=== PATIENT | male | born 1975 | race Caucasian/White ===

== ENCOUNTER 2016-06-28 07:52 | Emergency (ER) | payer BC, OTHER ==
[~2016-06-28] VITALS: Ht 188 cm; Wt 125.0 kg
[~2016-06-28 07:52] MED LIST: AMR2 PO
[2016-06-28 08:01] VITALS: TEMP 37.5; Ht 188 cm; Wt 125.0 kg
[2016-06-28] MEDS ORDERED: MoRPHine SULFATE 4 MG/ML 1 ML CARP\\VIAL IV STA (08:11)
[2016-06-28] MEDS ORDERED: ONDANSETRON INJ 2 MG/ML 2 ML VIAL IV STA (08:11)
[2016-06-28] MEDS ORDERED: METF-384 PO (08:51)
[2016-06-28] MEDS ORDERED: INSU1INJ33 INJ (08:51)
[2016-06-28] MEDS ORDERED: LISI-461 PO (08:51)
[2016-06-28 09:04] LABS: BASO % 0.2 %; BASO ABS # 0.01 K/uL (0-0.2); COMPLETE YES; HEMATOCRIT 42.1 % (42-52); IG% 0.2 %; LYMPH % 26.4 %; LYMPH ABS # 1.61 K/uL (1.2-3.4); MEAN CELL VOLUME 83.4 fL (80-100); MEAN CORPUSCULAR HEMOGLOBIN 29.7 pg (25-34); MEAN CORPUSCULAR HGB CONC 35.6 g/dl (32-36); MEAN PLATELET VOLUME 10.1 fL (7.4-10.4); MONO % 10.8 %; NEUT % 61.4 %; PLATELET COUNT 182 K/uL (130-400); RED BLOOD COUNT 5.05 M/uL (4.7-6.1); WHITE BLOOD COUNT 6.11 K/uL (4.8-10.8)
[2016-06-28 09:11] LABS: PARTIAL THROMBOPLASTIN RATIO 1.1; PROTHROMBIN TIME (PATIENT) 10.7 SECONDS (9.0-12.0)
--- NOTE | 2016-06-28 09:16 | DIAGNOSTIC IMAGING REPORT ---
RIGHT KNEE 3 VIEWS CLINICAL HISTORY: pain Right pain COMPARISON: None. DISCUSSION: The bones and joint spaces appear intact. There is no evidence of fracture, dislocation or bony disease. There is no evidence for soft tissue swelling. IMPRESSION: Negative study. Electronically signed by: Zac Barragan M.D. 06/28/2016 9:14 AM Dictated Date/Time: 06/28/2016 9:14 AM
[2016-06-28 09:20] LABS: ALT/SGPT 30 U/L (12-78); BLOOD UREA NITROGEN 15 mg/dl (7-18); BUN/CREATININE RATIO 27.6 (10-20); C-REACTIVE PROTEIN 1.26 mg/dl (0-0.29); CARBON DIOXIDE 24 mmol/L (21-32); CHLORIDE 103 mmol/L (98-107); CREATININE 0.54 mg/dl (0.60-1.40); GLUCOSE 119 mg/dl (70-99); SODIUM 137 mmol/L (136-145)
[2016-06-28 09:23] LABS: ALB/GLOB RATIO 0.9 (0.9-2); ALKALINE PHOSPHATASE 64 U/L (45-117); AST/SGOT 14 U/L (15-37)
--- NOTE | 2016-06-28 09:37 | DIAGNOSTIC IMAGING REPORT ---
Venous Doppler right leg RIGHT VENOUS DOPP LOWER EXT UNILAT CLINICAL HISTORY: pain/palpable cord Right pain. Edema. TECHNIQUE: Venous Doppler COMPARISON STUDY: None FINDINGS: Normal study IMPRESSION: Normal study Electronically signed by: Zac Barragan M.D. 06/28/2016 9:35 AM Dictated Date/Time: 06/28/2016 9:35 AM
[2016-06-28] MEDS ORDERED: CEFTRIAXONE SOD INJ 1 GM ADDVIAL IV STA (11:01)
[2016-06-28] MEDS ORDERED: HYDR-5688 PO (11:50)
[2016-06-28] MEDS ORDERED: CEPH500C PO (11:50)
--- NOTE | 2016-06-28 11:51 | EMERGENCY ROOM VISIT NOTE ---
History First contact with patient: 08:02 Chief Complaint: KNEEPAIN Stated Complaint: RIGHT KNEE-CAN'T PUT WEIGHT ON LEG History of Present Illness The patient is a 41 year old male who presents to the Emergency Department by private vehicle for evaluation of his RIGHT knee and leg pain. The patient reports that on Saturday he noticed pain to the knee and leg PROM awakening. He was not sure if he might obstruct his knee on a shelf prior to going to bed. He reports that he has had increasing pain with ambulation over the last few days. He woke today with intense pain which has limited his weightbearing capacity. The patient denies any redness or swelling to the area. He denies any fevers or chills. He denies any numbness or weakness to the distal extremity. He rates his current discomfort as a 10/10. He has tried nothing [id number] for symptoms. He denies any chest pain, palpitations, shortness of breath, nausea, or vomiting. He denies any known trauma to the area. He denies any recent tick bites or other exposures. He reports no history of injury or arthritis to the affected joint. The patient denies any family history of blood clots or bleeding disorders. Patient does have a history of diabetes. Review of Systems A complete 10-point Review of Systems was discussed with the patient, with pertinent positives and negatives listed in the History of Present Illness. All remaining Review of Systems questions can be considered negative unless otherwise specified. Social History Smoking Status: Never Smoker Smokeless Tobacco Use: No Drug Use: none Current/Historical Medications Scheduled Cephalexin Monohydrate (Keflex), 500 MG PO QID Insulin Degludec (Tresiba Flextouch), 40 UNITS INJ QPM Lisinopril (Lisinopril), 1 TAB PO QAM Metformin Hcl (Glucophage), Unknown Dose PO BID Scheduled PRN Hydrocodone/Acetaminophen 5MG/325MG (Scurry 5MG/325MG), 1-2 TABLET PO Q4H PRN for Pain Allergies Coded Allergies: No Known Allergies (Verified , 09/10/06) Physical Exam Vital Signs Date Time Temp Pulse Resp B/P Pulse Ox O2 Delivery O2 Flow Rate FiO2 06/28/16 12:02 90 16 111/65 97 06/28/16 10:35 92 16 133/73 97 Room Air 06/28/16 08:42 98 18 103/75 96 Room Air 06/28/16 08:01 37.5 111 18 134/90 97 Room Air Pain Rating (0-10): 10 Physical Exam VITAL SIGNS - Vital signs and nursing notes were reviewed. GENERAL - 41-year-old male appearing his stated age and in noticeable discomfort throughout the exam. MUSCULOSKELETAL - callus noted to the anterior surface of the RIGHT knee. Mild surrounding erythema. Moderately tender to palpation throughout the entire knee and pain with range of motion appreciated. Reducible tenderness to palpation to the posterior surface of the RIGHT calf. +5/5 strength appreciated bilaterally. NEUROLOGIC/VASCULAR - Neurovascularly intact distally with +3/5 dorsalis pedis pulses palpated bilaterally. Normal sensation to light and sharp touch appreciated distally. Medical Decision & Procedures ER Provider Diagnostic Interpretation: Radiological imaging and reports were reviewed by myself. Radiologist's Interpretation as follows: RIGHT KNEE 3 VIEWS CLINICAL HISTORY: pain Right pain COMPARISON: None. DISCUSSION: The bones and joint spaces appear intact. There is no evidence of fracture, dislocation or bony disease. There is no evidence for soft tissue swelling. IMPRESSION: Negative study. Venous Doppler right leg RIGHT VENOUS DOPP LOWER EXT UNILAT CLINICAL HISTORY: pain/palpable cord Right pain. Edema. TECHNIQUE: Venous Doppler COMPARISON STUDY: None FINDINGS: Normal study IMPRESSION: Normal study Laboratory Results 06/28/16 08:40 Red Blood Count 5.05, Mean Corpuscular Volume 83.4, Mean Corpuscular Hemoglobin 29.7, Mean Corpuscular Hemoglobin Concent 35.6, Mean Platelet Volume 10.1, Neutrophils (%) (Auto) 61.4, Lymphocytes (%) (Auto) 26.4, Monocytes (%) (Auto) 10.8, Eosinophils (%) (Auto) 1.0, Basophils (%) (Auto) 0.2, Neutrophils # (Auto ) 3.76, Lymphocytes # (Auto) 1.61, Monocytes # (Auto) 0.66, Eosinophils # (Auto ) 0.06, Basophils # (Auto) 0.01 06/28/16 08:40 Test 06/28/16 08:40 White Blood Count 6.11 K/uL (4.8-10.8) Red Blood Count 5.05 M/uL (4.7-6.1) Hemoglobin 15.0 g/dL (14.0-18.0) Hematocrit 42.1 % (42-52) Mean Corpuscular Volume 83.4 fL (80-100) Mean Corpuscular Hemoglobin 29.7 pg (25-34) Mean Corpuscular Hemoglobin Concent 35.6 g/dl (32-36) Platelet Count 182 K/uL (130-400) Mean Platelet Volume 10.1 fL (7.4-10.4) Neutrophils (%) (Auto) 61.4 % Lymphocytes (%) (Auto) 26.4 % Monocytes (%) (Auto) 10.8 % Eosinophils (%) (Auto) 1.0 % Basophils (%) (Auto) 0.2 % Neutrophils # (Auto) 3.76 K/uL (1.4-6.5) Lymphocytes # (Auto) 1.61 K/uL (1.2-3.4) Monocytes # (Auto) 0.66 K/uL (0.11-0.59) Eosinophils # (Auto) 0.06 K/uL (0-0.5) Basophils # (Auto) 0.01 K/uL (0-0.2) RDW Standard Deviation 37.9 fL (36.4-46.3) RDW Coefficient of Variation 12.6 % (11.5-14.5) Immature Granulocyte % (Auto) 0.2 % Immature Granulocyte # (Auto) 0.01 K/uL (0.00-0.02) Erythrocyte Sedimentation Rate 45 mm/hr (0-14) Prothrombin Time 10.7 SECONDS (9.0-12.0) Prothromb Time International Ratio 1.0 (0.9-1.1) Activated Partial Thromboplast Time 28.3 SECONDS (21.0-31.0) Partial Thromboplastin Ratio 1.1 Anion Gap 10.0 mmol/L (3-11) Est Creatinine Clear Calc Drug Dose 253.0 ml/min Estimated GFR () > 150.0 Estimated GFR (Non- 130.4 BUN/Creatinine Ratio 27.6 (10-20) Calcium Level 9.0 mg/dl (8.5-10.1) Magnesium Level 2.0 mg/dl (1.8-2.4) Total Bilirubin 0.6 mg/dl (0.2-1) Aspartate Amino Transf (AST/SGOT) 14 U/L (15-37) Alanine Aminotransferase (ALT/SGPT) 30 U/L (12-78) Alkaline Phosphatase 64 U/L (45-117) C-Reactive Protein 1.26 mg/dl (0-0.29) Total Protein 8.2 gm/dl (6.4-8.2) Albumin 3.8 gm/dl (3.4-5.0) Globulin 4.4 gm/dl (2.5-4.0) Albumin/Globulin Ratio 0.9 (0.9-2) Medications Administered Medications (Trade) Dose Ordered Sig/Monie Route Start Time Stop Time Status Last Admin Dose Admin Morphine Sulfate (MoRPHine SULFATE INJ) 4 mg NOW STAT IV 06/28/16 08:11 06/28/16 08:14 DC 06/28/16 08:41 4 MG Ondansetron HCl (Zofran Inj) 4 mg NOW STAT IV 06/28/16 08:11 06/28/16 08:14 DC 06/28/16 08:40 4 MG Ceftriaxone Sodium (Rocephin Inj) 1 gm NOW STAT IV 06/28/16 11:01 06/28/16 11:02 DC 06/28/16 11:13 1 GM ED Course Patient was seen and evaluated by myself. Labs were drawn, saline lock in place. Patient was treated with 4 mg morphine and 4 mg Zofran for pain. X-ray of the affected knee and ultrasound of the RIGHT lower extremity was obtained. Laboratory results demonstrate no acute leukocytosis, worrisome anemia, or bandemia. The patient does have mild elevation of his ESR and CRP. Imaging studies are otherwise unremarkable. Laboratory results and imaging studies were reviewed with the patient who acknowledges understanding. The patient was treated with 1 g of Rocephin intravenously. The patient was provided crutches for ambulation. He will follow-up with his primary care provider in the next 48 hours for recheck. He was educated on worrisome symptoms for return visit to the emergency department. Patient discharged home afebrile and in good condition. Medical Decision Given the patient's presentation and stated complaints, I did elect to perform the above-mentioned workup. The patient presents today with pain to the RIGHT knee and leg. He has no fever leukocytosis. He does have callus-like structures to the bilateral surface of the knee. There is no joint effusion. There is no DVT. There is no concerning exam findings for compartment syndrome. I questioned the patient has an early cellulitis to the anterior surface of the RIGHT knee. He was covered prophylactically with Rocephin. He was placed on Keflex as well. He was provided pain medication for home as well as crutches for ambulation. The patient will use [id number]-[id number] medications for ongoing symptoms as well. He'll follow-up with his primary care provider in 48 hours for recheck. He will return for changing/worsening symptoms. Patient discharged home afebrile and in good condition. In the evaluation and treatment of this patient, the following differential diagnoses were considered: Patellar Fracture, Tibial Plateau Fracture, Distal Femur Fracture, ACL Injury, PCL Injury, Collateral Ligament Injury, Pes Anserine Bursitis, Maisonneuve Fracture. Impression Primary Impression: Knee pain Additional Impression: Cellulitis Departure Information Dispostion Home / Self-Care Condition GOOD Prescriptions Hydrocodone/Acetaminophen 5MG/325MG (Scurry 5MG/325MG) Tab 1-2 TABLET PO Q4H Y for Pain, #18 TAB For Initial Treatment Prov: Behzad Araujo PA-C 06/28/16 Cephalexin Monohydrate (Keflex) 500 Mg Cap 500 MG PO QID for 10 Days, #40 CAP Prov: Behzad Araujo PA-C 06/28/16 Referrals Felix Esparza M.D. (PCP) Patient Instructions My [facility] Additional Instructions You have been seen in the emergency department today for your RIGHT knee and leg pain. You've been provided antibiotics to be used for a possible early infection. You were prescribed Keflex to be taken as prescribed. This is an antibiotic. All antibiotics have the potential to cause diarrhea. Stop this medication and contact a medical provider if you were to develop any significant adverse side effects including: wheezing, shortness of breath, passing out, vomiting, or a diffuse rash. Always take antibiotics as directed and COMPLETE the ENTIRE course regardless of the improvement of your symptoms. You have been prescribed Scurry to be used for pain control. This is a narcotic medication. You cannot drive or consume alcohol while on this medicine. This medicine should only be used for pain that cannot be controlled with over-the- counter pain medicines. For pain control, you can use the following vsed-cub-vnpytdo medicines (if >12 yo): - Regular strength (325mg/tab) Tylenol (acetaminophen) 2 tabs every 4-6 hours as needed. Do not exceed 12 tablets in a 24 hour period. Avoid taking more than 4 grams (4000 mg) of Tylenol per day. This includes any other sources of acetaminophen you may take on a regular basis. - Regular strength (200 mg/tab) Advil (ibuprofen) 1-2 tabs every 4-6 hours as needed. Do not exceed a dose of 3200 mg per day. Please use the crutches for ambulation for the next few days. Follow-up with your primary care provider in 48 hours for wound recheck from today's visit. Return for any changing or worsening symptoms. Problem Qualifiers Primary Impression: Knee pain Laterality: right Chronicity: acute Qualified Codes: M25.561 - Pain in right knee Additional Impression: Cellulitis Site of cellulitis: extremity Site of cellulitis of extremity: lower extremity Laterality: right Qualified Codes: L03.115 - Cellulitis of right lower limb
[2016-06-28 12:02] VITALS: BP 111/65; PULSE 90; O2SAT 97
[2016-10-11] MEDS ORDERED: MULT-506 PO (12:33)
[2016-10-11] MEDS ORDERED: GLC/500 PO (12:33)
[2016-10-11] MEDS ORDERED: ASPI81TA28 PO (12:33)
[2016-10-11] MEDS ORDERED: ATOR-22 PO (12:33)
[2016-10-11] MEDS ORDERED: LISI10TA PO (12:33)
== END 2016-06-28 12:04 | disposition home or self-care (01) ==
LOC: C.EDB 07:53
DX: L03.115 Cellulitis of right lower limb (principal); E11.9 Type 2 diabetes mellitus without complications; Z79.899 Other long term (current) drug therapy

== ENCOUNTER → 2016-07-04 | Outpatient (CLI) | payer BC ==
[~2016-07-04] MED LIST changes: -AMR2 PO; +ASPI81TA28 PO; +ATOR-22 PO; +CEPH500C PO; +GLC/500 PO; +HYDR-5688 PO; +INSU1INJ33 INJ; +LISI-461 PO; +LISI10TA PO; +METF-384 PO; +MULT-506 PO
[2016-07-04 13:44] LABS: RATIO 264.2 mcg/mg (0-30.0)
[2016-07-09 06:11] LABS: ALBUMIN 3.9 G/DL (3.8-4.8); ALBUMIN % 73.83 %; BETA GLOBULIN % 11.14 %; CREATININE UR 183 MG/DL (20-370); GAMMA GLOBULIN 1.2 G/DL (0.8-1.7); GAMMA GLOBULIN % 6.79 %; TOTAL PROTEIN 7.7 G/DL (6.2-8.3)
== END | disposition home or self-care (01) ==
LOC: C.LABBFT 09:41
PROVIDERS: ATTEND Internal Medicine
DX: E11.39 Type 2 diabetes mellitus with other diabetic ophthalmic complication (principal); R80.9 Proteinuria, unspecified

== ENCOUNTER → 2016-08-22 | Outpatient (CLI) | payer BC ==
[~2016-08-22] MED LIST changes: -CEPH500C PO
[2016-08-22 12:48] LABS: ESTIMATED AVERAGE GLUCOSE 154 mg/dl; HA1C FLAG Normal (Normal)
== END | disposition home or self-care (01) ==
LOC: C.LAB1850 10:05
PROVIDERS: ATTEND Nurse Practitioner Family
DX: E11.39 Type 2 diabetes mellitus with other diabetic ophthalmic complication (principal)

== ENCOUNTER → 2016-10-18 | Day surgery (SDC) | payer BC ==
[2016-10-11 12:35] VITALS: BMI 35.0
[~2016-10-18] VITALS: Ht 188 cm; Wt 122.7 kg
[~2016-10-18] MED LIST changes: +ATROPINE SULFATE 0.1 MG/ML 5ML SYR IV PRN; +EpHEDrine SULFATE INJ 50 MG/ML AMP IV PRN; -HYDR-5688 PO; +LIDOCAINE HCL 2% 2 ML VIAL (20MG/ML) ONE; -LISI-461 PO; -METF-384 PO; +PROPOFOL IV EMULSION 10 MG/ML 20 ML VIAL IV ONE
[2016-10-18 13:09] VITALS: Ht 188 cm; Wt 122.7 kg
--- NOTE | 2016-10-18 13:44 | Endo History and Physical ---
History & Physical Date of Service: October 18, 2016. Chief Complaint: mother had colon cancer Referring Physician: Dr. Esparza History of Present Illness 41 yo CM who presents for colonoscopy secondary to family history of colon cancer. Past Surgical History Hx Cardiac Surgery: No Hx Internal Defibrillator: No Hx Pacemaker: No Hx Abdominal Surgery: No Hx of Implantable Prosthesis: No Hx Post-Op Nausea and Vomiting: No Hx Cancer Surgery: No Hx Thoracic Surgery: No Hx Orthopedic: Yes (FINGERS CLOSED REDUCTION) Hx Urinary Tract Surgery: No Family History Colon CA Social History Smoking Status: Never Smoker Hx Substance Use: No Hx Alcohol Use: No Allergies Coded Allergies: No Known Allergies (Verified , 10/18/16) Current Medications Reported Home Medications Medications Dose Route/Sig Max Daily Dose Days Date Category Multivitamin (Multivitamins) Tab 1 Tab PO QAM 10/11/16 Reported Aspirin Ec (Aspirin) 81 Mg Tab 81 Mg PO QAM 10/11/16 Reported Glucophage (Metformin Hcl) 500 Mg Tab 2 Tabs PO BID 10/11/16 Reported Prinivil (Lisinopril) 10 Mg Tab 10 Mg PO QAM 10/11/16 Reported Lipitor (Atorvastatin Calcium) 20 Mg Tab 20 Mg PO HS 10/11/16 Reported Tresiba Flextouch (Insulin Degludec) 100 Unit/Ml Inj 40 Units INJ HS 06/28/16 Reported Vital Signs Weight (Kilograms): 122.73 Height (Feet): 6 Height (Inches): 2 Date Time Temp Pulse Resp B/P Pulse Ox O2 Delivery O2 Flow Rate FiO2 10/18/16 13:16 36.7 93 18 119/74 99 Room Air Physical Exam General Appearance: WD/WN, no apparent distress Respiratory/Chest: Auscultation: breath sounds normal Cardiovascular: Heart Auscultation: RRR Abdomen: Bowel Sounds: normal Inspection & Palpation: soft, non-distended, no tenderness, guarding & rebound Assessment and Plan Assessment: 41 yo CM who presents for colonoscopy secondary to family history of colon cancer. Plan: Proceed with colonoscopy.
--- NOTE | 2016-10-18 14:30 | GI REPORT ---
Procedure Date: 10/18/2016 2:06 PM Procedure: Colonoscopy Indications: Family history of colon cancer in a first-degree relative Medicines: Monitored Anesthesia Care Complications: No immediate complications. Estimated Blood Loss: Estimated blood loss: none. Procedure: Pre-Anesthesia Assessment: - Prior to the procedure, a History and Physical was performed, and patient medications and allergies were reviewed. The patient's tolerance of previous anesthesia was also reviewed. The risks and benefits of the procedure and the sedation options and risks were discussed with the patient. All questions were answered, and informed consent was obtained. Prior Anticoagulants: The patient has taken aspirin, last dose was 2 days prior to procedure. ASA Grade Assessment: II - A patient with mild systemic disease. After reviewing the risks and benefits, the patient was deemed in satisfactory condition to undergo the procedure. After I obtained informed consent, the scope was passed under direct vision. Throughout the procedure, the patient's blood pressure, pulse, and oxygen saturations were monitored continuously. The scope was introduced through the anus with the intention of advancing to the ileum. The scope was advanced to the ascending colon before the procedure was aborted. Medications were given. The colonoscopy was aborted due to inadequate bowel prep and poor endoscopic visualization. Lavage did not allow for the successful completion of the procedure. The colonoscopy was performed with moderate difficulty due to inadequate bowel prep. The patient tolerated the procedure well. The quality of the bowel preparation was inadequate. The rectum was photographed. Findings: Copious quantities of stool was found in the entire colon, precluding visualization. Lavage of the area was performed using a large amount of normal saline, resulting in incomplete clearance with continued poor visualization. Impression: - The procedure was aborted due to inadequate bowel prep and poor endoscopic visualization. - Stool in the entire examined colon. - No specimens collected. Recommendation: - Resume previous diet. - Continue present medications. - Repeat colonoscopy in 3 months because the bowel preparation was poor. - Return to primary care physician as previously scheduled. Rey Watters, DO 10/18/2016 2:30:01 PM This report has been signed electronically. Note Initiated On: 10/18/2016 2:06 PM I attest to the content of the Intraoperative Record and orders documented therein, exceptions below
--- NOTE | 2016-10-18 14:44 | Anesthesiology Progress Note ---
Anesthesia Post Op Note Date & Time October 18, 2016 at 14:44 Vital Signs Pain Intensity: 0 Vital Signs Past 12 Hours Date Time Temp Pulse Resp B/P Pulse Ox O2 Delivery O2 Flow Rate FiO2 10/18/16 14:24 85 18 95/54 98 Room Air 10/18/16 13:16 36.7 93 18 119/74 99 Room Air Notes Mental Status: alert / awake / arousable, participated in evaluation Pt Amnestic to Procedure: Yes Nausea / Vomiting: adequately controlled Pain: adequately controlled Airway Patency, RR, SpO2: stable & adequate BP & HR: stable & adequate Hydration State: stable & adequate Anesthetic Complications: no major complications apparent
--- NOTE | 2016-10-18 14:50 | Discharge Instructions ---
Endoscopy Patient Instructions Date / Procedure(s) Performed October 18, 2016. Colonoscopy Allergy Information Coded Allergies: No Known Allergies (Verified , 10/18/16) Discharge Date / Findings October 18, 2016. Poor Bowel Prep Medication Instructions OK to resume all medications today as prescribed Reported Home Medications Medications Dose Route/Sig Max Daily Dose Days Date Category Multivitamin (Multivitamins) Tab 1 Tab PO QAM 10/11/16 Reported Aspirin Ec (Aspirin) 81 Mg Tab 81 Mg PO QAM 10/11/16 Reported Glucophage (Metformin Hcl) 500 Mg Tab 2 Tabs PO BID 10/11/16 Reported Prinivil (Lisinopril) 10 Mg Tab 10 Mg PO QAM 10/11/16 Reported Lipitor (Atorvastatin Calcium) 20 Mg Tab 20 Mg PO HS 10/11/16 Reported Tresiba Flextouch (Insulin Degludec) 100 Unit/Ml Inj 40 Units INJ HS 06/28/16 Reported Provider Instructions Activity Restrictions - No exercising or heavy lifting for 24 hours. - Do not drink alcohol the day of the procedure. - Do not drive a car or operate machinery until the day after the procedure. - Do not make any important decisions or sign important papers in 24 hours after the procedure. Following Day: - Return to full activity which may include returning to work/school. Diet Start your diet with liquids and light foods (jello, soup, juice, toast). Then eat your usual diet if not nauseated. Treatment For Common After Affects For mild abdominal pain, bloating, or excessive gas: - Rest - Eat lightly - Lie on right side Follow-Up Information Follow-up with Dr. Esaprza as scheduled Anesthesia Information What You Should Know You have had a procedure that required some medicine to reduce anxiety and discomfort. This treatment is called moderate sedation. After receiving the treatment, you may be sleepy, but you will be able to breathe on your own. The effects of the treatment may last for several hours. Follow these instructions along with Activity/Diet recommendations noted above: * Do NOT do anything where dizziness or clumsiness would be dangerous. * Rest quietly at home today, then you can be up and about tomorrow. * Have a responsible person stay with you the rest of today. * You may have had an I.V. today. If so, you may take the dressing off later today. Recommendations Call your doctor if: * Trouble breathing * Continuous vomiting for more than 24 hours * Temperature above 101 degrees * Severe abdominal pain or bloating * Pain not relieved by pain medicine ordered * There is increased drainage or redness from any incision * A large amount of rectal bleeding greater than 2-3 tablespoons. (If you had a polyp/s removed or have hemorrhoids, a small amount of blood - from the rectum is to be expected.) * You have any unanswered questions or concerns. IN THE EVENT OF A SERIOUS EMERGENCY, GO TO THE NEAREST EMERGENCY ROOM Your discharge instructions were prepared by provider Rey Watters. Patient Instructions Signature Page Juventino Kevin Patient (or Guardian) Signature/Date: I have read and understand the instructions given to me by my caregivers. Caregiver/RN/Doctor Signature/Date: The above-named patient and/or guardian has received patient instructions on this date. + Original Patient Signature Page (only) stays with chart. Please make copy for patient.
[2016-10-18 14:54] VITALS: BP 101/66; PULSE 83; O2SAT 98
== END | disposition home or self-care (01) ==
LOC: C.GI 12:33
PROVIDERS: ATTEND Internal Medicine
DX: Z12.11 Encounter for screening for malignant neoplasm of colon (principal); Z80.0 Family history of malignant neoplasm of digestive organs; Z79.82 Long term (current) use of aspirin; Z79.899 Other long term (current) drug therapy

== ENCOUNTER → 2016-11-23 | Outpatient (CLI) | payer BC ==
[~2016-11-23] MED LIST changes: -ATROPINE SULFATE 0.1 MG/ML 5ML SYR IV PRN; -EpHEDrine SULFATE INJ 50 MG/ML AMP IV PRN; -LIDOCAINE HCL 2% 2 ML VIAL (20MG/ML) ONE; -PROPOFOL IV EMULSION 10 MG/ML 20 ML VIAL IV ONE
[2016-11-23 10:29] LABS: COMPLETE YES; EOS % 1.8 %; HEMATOCRIT 40.8 % (42-52); IG% 0.2 %; LYMPH % 47.1 %; LYMPH ABS # 2.06 K/uL (1.2-3.4); MEAN CELL VOLUME 85.7 fL (80-100); MEAN CORPUSCULAR HEMOGLOBIN 29.6 pg (25-34); MEAN CORPUSCULAR HGB CONC 34.6 g/dl (32-36); MONO % 12.4 %; NEUT % 38.5 %; PLATELET COUNT 160 K/uL (130-400); RED BLOOD COUNT 4.76 M/uL (4.7-6.1); WHITE BLOOD COUNT 4.37 K/uL (4.8-10.8)
[2016-11-23 10:39] LABS: URINE APPEARANCE CLEAR (CLEAR); URINE BILIRUBIN NEG (NEG); URINE COLOR YELLOW; URINE EPITHELIAL CELL AUTO 0-5 /lpf (0-5); URINE NITRITE NEG (NEG); URINE SPECIFIC GRAVITY 1.025 (1.000-1.030); UROBILINOGEN NEG (NEG); ZZUR CULT IF INDIC CLEAN CATCH NO
[2016-11-23 10:46] LABS: MANUAL MICROSCOPIC REQUIRED? NO; REVIEW REQ? NO
[2016-11-23 10:50] LABS: URINE PROTIEN/CREAT RATIO 0.2 (0-0.2); URINE TOTAL PROTEIN 15.7 mg/dl (0-11.9)
[2016-11-23 10:55] LABS: ALT/SGPT 50 U/L (12-78); BLOOD UREA NITROGEN 17 mg/dl (7-18); BUN/CREATININE RATIO 40.5 (10-20); CALCIUM 9.2 mg/dl (8.5-10.1); CARBON DIOXIDE 29 mmol/L (21-32); CHLORIDE 105 mmol/L (98-107); CHOLESTEROL 109 mg/dl (0-200); CREATININE 0.41 mg/dl (0.60-1.40); GLUCOSE 89 mg/dl (70-99); POTASSIUM 4.2 mmol/L (3.5-5.1); SODIUM 139 mmol/L (136-145); TRIGLYCERIDES 50 mg/dl (0-150); VERY LOW DENSITY LIPOPROT CALC 10 mg/dl
[2016-11-23 10:58] LABS: ALB/GLOB RATIO 1.1 (0.9-2); ALKALINE PHOSPHATASE 54 U/L (45-117); AST/SGOT 17 U/L (15-37); CHOLESTEROL/HDL RATIO 2.2; HDL CHOLESTEROL 49 mg/dl; LDL CHOLESTEROL CALCULATED 50 mg/dl
[2016-11-23 11:49] LABS: ESTIMATED AVERAGE GLUCOSE 137 mg/dl; HA1C FLAG Normal (Normal)
== END | disposition home or self-care (01) ==
LOC: C.LAB1850 08:57
PROVIDERS: ATTEND Internal Medicine
DX: E78.5 Hyperlipidemia, unspecified (principal); E11.39 Type 2 diabetes mellitus with other diabetic ophthalmic complication; R80.9 Proteinuria, unspecified; D72.819 Decreased white blood cell count, unspecified

== ENCOUNTER → 2017-06-07 | Outpatient (CLI) | payer BC ==
[2017-06-07 12:24] LABS: HEMOGLOBIN A1C 7.7 % (4.5-5.6)
[2017-06-07 12:25] LABS: BLOOD UREA NITROGEN 14 mg/dl (7-18); CALCIUM 9.3 mg/dl (8.5-10.1); CARBON DIOXIDE 30 mmol/L (21-32); CREATININE 0.63 mg/dl (0.60-1.40); GLUCOSE 162 mg/dl (70-99); SODIUM 135 mmol/L (136-145)
[2017-06-07 14:05] LABS: CREATININE RANDOM URINE 36.2 mg/dl
== END | disposition home or self-care (01) ==
LOC: C.LAB1850 10:01
PROVIDERS: ATTEND Nurse Practitioner Family
DX: E78.5 Hyperlipidemia, unspecified (principal); R80.9 Proteinuria, unspecified; E11.39 Type 2 diabetes mellitus with other diabetic ophthalmic complication

== ENCOUNTER 2020-07-08 03:20 | Inpatient (IN) ==
--- OUTSIDE RECORDS SUMMARY | 2020-07-08 03:23 | External Medical Summary | Continuity of Care Document ---
:1975 Author Name Floyd Zaragoza, Provider Address Unavailable Unavailable , Care Team Providers Name Role Phone Unavailable Unavailable Unavailable Todd ROTHMAN, Ileana Robertson Unavailable [email or web address] Koby VIRGEN Unavailable [email or web address] Edwardo ONTIVEROS M.D. 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) Patellar bursitis, right (726.60) (M70.51) Proteinuria (791.0) (R80.9) Diabetes mellitus type 2, uncontrolled (250.02) (E11.65) Type 2 diabetes mellitus, with long-term current use of insulin (250.00) (E11.9) Type 2 diabetes mellitus with complications (250.90) (E11.8) Obesity (278.00) (E66.9) Dyslipidemia (272.4) (E78.5) Hypertension (401.9) (I10) Diabetic nephropathy associated with type 2 diabetes m ellitus (250.40) (E11.21) Albuminuria (791.0) (R80.9) Diabetic peripheral neuropathy associate d with type 2 diabetes mellitus (250.60) (E11.42) Dysesthesia (782.0) (R20.8) Background diabetic retinopathy associat ed with type 2 diabetes mellitus (250.50) (E11.3299) Strain of trapezius muscle, left, initial encounter (840.8) (S46.812A) Knee pain (719.46) (M25.569) Allergies and Adverse Reactions No Known Drug Allergies (Allergy) Medications Mens Multi Vitamin & Mineral Oral Tablet; TAKE 1 TABLET SAMIRA Vázquez M.D. Start: 30-Nov-2016 Refills: 0 Aspirin 81 MG Oral Tablet Delayed Release; TAKE 1 TABLET BOWEN VANN M.D. Start: 30-Nov-2016 Refills: 0 Atorvastatin Calcium 20 MG Oral Tablet; TAKE ONE TABLE T BY MOUTH AT BEDTIME LORNA Brooks Start: 08-Jul-2017 Quantity: 30 Refills: 5 ReliOn Ultra Thin Plus Lancets; Test 3 times daily , MJerrica Start: 28-Oct-2017 Refills: 0 ReliOn Prime Test In Vitro Strip; TEST 3 TIMES DAILY. , Nik Start: 28-Oct-2017 Refills: 0 ReliOn Pen Roper 32G X 4 MM; Once daily with Huy medina Start: 28-Oct-2017 Refills: 0 metFORMIN HCl - 500 MG Oral Tablet; TAKE TWO TABLETS B Y MOUTH TWICE DAILY LORNA Brooks Start: 10-Jun-2017 Quantity: 120 Refills: 5 Soliqua 100-33 UNT-MCG/ML Subcutaneous S olution Pen-injector; INJECT 30 UNITS DAILY PROMISE Whalen Start: 07-Jun-2017 Quantity: 1 5 x 3 ML Pen Refills: 6 Procedures History of Tonsillectomy Status: Complet ed History of Oral Surgery Tooth Extraction Status: Completed Immunizations Tdap (Adacel) On: 12-Mar-2016 11:19 Lot #: [id number], SANOFI PASTEUR Pneumococcal polysaccharide vaccine, 23 valent On: 12-Feb-20 17 Fluzone Quadrivalent 0.5 ML Intramuscular Suspension On: Jan-2017 Pneumococcal polysaccharide vaccine, 23 valent Comments:08/22/2016-no Influenza Comments:08/22/2016-N O3 Family History cousin Family history of malignant neoplasm of breast (V16.3) (Z80. 3) Status: Active Mother Family history of Colon cancer (153.9) (C18.9) Status: Activ e Father Family history of diabetes mellitus (V18.0) (Z83.3) Status: Active Family history of myocardial infarction (V17.3) (Z82.49) Sta tus: Active Social History - Smoking Status Never smoked tobacco Plan of Treatment Planned Observations Planned Goals not documented Results No Known Results Results not documented
--- NOTE | 2020-07-08 05:05 | Emergency Department Note ---
Impression & Plan DKA (diabetic ketoacidoses), Diabetic foot ulcer, Acute hyponatremia, Hypertension ED Provider Note NAME: LANCE MCLAUGHLIN AGE: 45 SEX: M ARRIVES VIA: Walk-In INFORMANT: Patient ED PROVIDER(S): Monik Loving DO CHIEF COMPLAINT: Left lower extremity swelling and pain PLAN: Disposition: The patient is being admitted to the [facility] Condition: Guard condition MEDICAL DECISION MAKING: This is a 45-year-old who presents to the emergency department with left foot pain and lower extremity swelling. The patient is a known diabetic off of his medications. Laboratory studies reveal significant hyperglycemia with an elevated BHA and evidence of hyponatremia. Patient was found to be significantly hypertensive. He was treated with IV Lopressor and an insulin drip was started. Ultrasound showed no evidence of DVT but he did have some inguinal lymphadenopathy on the left which is most likely contributing to the left lower extremity edema. CT scan of the abdomen/pelvis showed no other significant intra-abdominal lymphadenopathy. The case was discussed with the [facility] and they will evaluate for further management. Triage Nursing notes reviewed and agree them. Vital Signs: reviewed and remarkable for tachycardia and hypertension Differential diagnosis: DVT, osteomyelitis, hypertensive crisis, DKA, diabetic hyperglycemia, dehydration, foreign body in the left foot, electrolyte abnormality ER treatment provided: Insulin drip IV Lopressor Diagnostics interpreted by me: Cardiac Monitoring: Sinus tachycardia at 112 Laboratory studies: As below Imaging studies: As per stat rad Ultrasound venous left lower extremity: Left inguinal lymphadenopathy with the largest measuring 4.7 x 1.9 x 2.7 cm. No evidence for left lower extremity DVT. Left foot x-ray: No evidence of foreign body; no evidence of osteomyelitis to the metatarsals. There is no evidence of fracture as per my interpretation. [facility], [id number] CT Scan Report Patient: LANCE MCLAUGHLIN Date: 07/08/20#: [id number]: [address] RDAcct ID:[id number]: Date: [address] Zip: [place] [address]Fgw: 45Location: EDSex: MRoom/Bed:Att Phy:Diagnosis: FOOT WOUND,SWOLLEN ANKLE,NO MORPHINEPri Phy: Felix Esparza, MDStogus va medical centerice Date: 07/08/20Fa Phy:Interpreting Phy: Parish Lianne Viryaubree MDAit Phy: Ordering Phy: Monik Loving D.O. ABDOMEN AND PELVIS CT WITH IV CONTRAST CT DOSE: 1170.67 mGycm HISTORY: eval abdominal lymphadenopathy TECHNIQUE: Multiaxial CT images of the abdomen and pelvis were performed following the use of intravenous contrast. A dose lowering technique was utilized adhering to the principles of ALARA. COMPARISON STUDY: None. FINDINGS: The lung bases are clear. No pneumoperitoneum. No pneumatosis. No suspicious lytic are blastic osseous lesions. The liver, gallbladder, spleen, adrenal glands, pancreas, and kidneys are unremarkable. No hydronephrosis. There are few prominent periportal lymph nodes. However, these remain subcentimeter in short axis diameter and therefore do not meet CT criteria for pathologic involvement. Dominant portacaval lymph node measures 2.2 x 0.9 cm. Otherwise, no retroperitoneal lymphadenopathy. Subcentimeter pelvic sidewall lymph nodes are also within the range normal limits. The bladder is decompressed and not well evaluated. The prostate gland is normal in size. A few colonic diverticula. No evidence for acute diverticulitis. No bowel wall thickening or obstruction. Normal appendix. IMPRESSION: 1. A few prominent periportal lymph nodes which are at the upper limits of normal for size. Otherwise, no lymphadenopathy identified in the abdomen or pelvis. 2. No bowel wall thickening or obstruction. 3. Normal appendix. 4. No hydronephrosis. HPI: 45/M arrives for evaluation of left foot pain. The patient developed blister in April on the plantar surface of his left foot. Over the past 1 week, he has noted that that blister has opened up and that the foot has begun to throb. He has also noticed increased swelling in the left foot and left calf now he has significant pain up into the calf. The patient has a known history of diabetes. He stopped taking all of his medication approximately 2 years ago after he stopped seeing Dr. Taylor. He has only seen his PCP-Dr. Esparza once in the past 2 years. ROS: See above HPI for pertinent positives & negatives. A total of 10 systems reviewed and were otherwise negative. PAST MEDICAL HISTORY:See Below PAST SURGICAL HISTORY:See Below FAMILY HISTORY:See Below SOCIAL HISTORY:See Below HOME MEDICATIONS:See list ALLERGIES:None VITALS:See Below PHYSICAL EXAMINATION: HEENT: Head - normocephalic and atraumatic. Pupils are equal, round, and reactive to light. Extraocular eye muscles are intact, and sclera are anicteric. Nose - moist nasal mucosa without discharge. Mouth - moist buccal mucosa. Oropharynx is nonerythematous and there is no tonsillar exudate or edema noted. Neck: Supple; no cervical lymphadenopathy Heart: Regular rate and rhythm. There is a normal S1 and S2 with no murmurs, clicks, or gallops appreciated. Lungs: Clear to auscultation bilaterally with no wheezes, rales, or rhonchi. Abdomen: Soft, protuberant, completely nontender, nondistended, with good bowel sounds. There are no palpable pulsatile masses or hepatosplenomegaly. There is no guarding, rigidity, or rebound noted. Extremities: The left lower extremity appears larger or more edematous than the right, most specifically in the foot and calf area. There is significant fungus about the feet. There is an open wound about the plantar surface of the fifth metatarsal measuring the size of a quarter with subcutaneous fat exposed. There is no obvious foreign body noted. There is no surrounding erythema or cellulitic changes appreciated. There are easily palpable distal pulses. The patient's left calf and popliteal fossa is quite painful to palpation Skin: warm and dry with good turgor and no rashes. ED COURSE: Times/Reassessments: 0405. The patient was evaluated in room A4. A complete history and physical was performed. An order was placed for continuous cardiac monitoring. The patient was in a sinus tachycardia at 112. An IV lock was initiated and labs were drawn as above. A twelve-lead EKG was obtained as described above. The patient went for plain films of the left foot to rule out osteomyelitis or foreign body near that ulcer. He will then have an ultrasound of the left lower extremity to rule out DVT. 0545: I reviewed the results of the x-ray and ultrasound and explained that he has inguinal lymphadenopathy will need to go for CT scan of the abdomen. The patient is also noted to be significantly hyperglycemic and IV fluids and an insulin drip will be started. Patient was bolused with IV normal saline solution 0715: Patient is resting comfortably at this time. However, the patient was noted to be significantly hypertensive and was given 5 mg of IV Lopressor. I kept him abreast of the situation. He will be admitted to the hospital. We are awaiting CT results and then I will talk to the [facility] hospitalist. 0815: I relayed to him the results of the CAT scan and will discuss the case with from [facility] hospitalist group. An ABG was ordered. The patient remained hemodynamically stable. I have personally spent greater than 65 minutes of critical care time in the direct management of this patient. This includes bedside care, interpretation of diagnostic studies, and testing, discussion with consultants, patient, and family members, and other required patient management activities. This 65 keira juan is in excess of all separately billable procedures. Monik Loving, Past Med/Surg History Medical History Diabetes Hypertension Surgical History H/O colonoscopy Family History Other Diabetes Social History Smoking Status: Never smoker Hx Alcohol Use: No Hx Substance Use: No Net Sql Developer Required: No Beliefs That Will Affect Care: Baptism Current Living Situation: Parent Other Information That Helps Us Care for You: No Feels Safe at Home: Yes Safety Concerns: Feels Safe At This Time Assistive Devices: Glasses Allergies Allergies Allergy/AdvReac Type Severity Reaction Status Date / Time morphine AdvReac Intermediate PER PT Verified 07/08/20 07:50 "CONFUSION, LOOPY, OUT OF MY MIND". Home Meds Home Medications Medication Instructions Recorded Confirmed acetaminophen [Tylenol Extra 1,000 mg PO Q6H PRN 07/08/20 07/08/20 Strength] Results & Data (ED) Vital Signs Vital Signs - 24 hr 07/08/20 03:30 07/08/20 05:30 07/08/20 06:07 Temperature 36.5 C Temperature Source Temporal Artery Scan Pulse Rate 112 H 99 H Pulse Rate [Finger] 102 H Pulse Rate from SpO2 Sensor 100 H Pulse Rhythm [Finger] Regular Respiratory Rate 18 18 24 Respiratory Effort / Characteristics Non-Labored Spontaneous Non-Labored Spontaneous Respiratory Depth Normal Normal Respiratory Pattern Regular Blood Pressure 207/99 H 191/101 H Blood Pressure [Right Arm] 191/101 H Blood Pressure Mean 135 131 Blood Pressure Mean [Right Arm] 131 Blood Pressure Position [Right Arm] Lying Pulse Oximetry 98 98 97 Oxygen Delivery Method Room Air Room Air Sepsis Recent Fever Within 48 Hours No Sepsis New/Unexplained Change in Mental Status N/A Sepsis Action Taken by Nursing No Action Required 07/08/20 06:08 07/08/20 06:10 07/08/20 06:20 Temperature Temperature Source Pulse Rate 96 H 93 H 96 H Pulse Rate [Finger] Pulse Rate from SpO2 Sensor 96 H 93 H 96 H Pulse Rhythm [Finger] Respiratory Rate 13 20 18 Respiratory Effort / Characteristics Respiratory Depth Respiratory Pattern Blood Pressure Blood Pressure [Right Arm] Blood Pressure Mean Blood Pressure Mean [Right Arm] Blood Pressure Position [Right Arm] Pulse Oximetry 97 96 97 Oxygen Delivery Method Sepsis Recent Fever Within 48 Hours Sepsis New/Unexplained Change in Mental Status Sepsis Action Taken by Nursing 07/08/20 06:38 07/08/20 06:40 07/08/20 06:43 Temperature Temperature Source Pulse Rate 98 H 94 H Pulse Rate [Finger] Pulse Rate from SpO2 Sensor 98 H 93 H Pulse Rhythm [Finger] Respiratory Rate 17 24 10 L Respiratory Effort / Characteristics Respiratory Depth Respiratory Pattern Blood Pressure 197/113 H Blood Pressure [Right Arm] Blood Pressure Mean 141 Blood Pressure Mean [Right Arm] Blood Pressure Position [Right Arm] Pulse Oximetry 99 98 Oxygen Delivery Method Sepsis Recent Fever Within 48 Hours Sepsis New/Unexplained Change in Mental Status Sepsis Action Taken by Nursing 07/08/20 06:47 07/08/20 06:50 07/08/20 07:00 Temperature Temperature Source Pulse Rate 93 H 91 H Pulse Rate [Finger] 93 H Pulse Rate from SpO2 Sensor 93 H 91 H Pulse Rhythm [Finger] Regular Respiratory Rate 18 21 23 Respiratory Effort / Characteristics Non-Labored Spontaneous Respiratory Depth Normal Respiratory Pattern Regular Blood Pressure 179/117 H Blood Pressure [Right Arm] 197/113 H Blood Pressure Mean 137 Blood Pressure Mean [Right Arm] 141 Blood Pressure Position [Right Arm] Lying Pulse Oximetry 99 99 97 Oxygen Delivery Method Room Air Sepsis Recent Fever Within 48 Hours Sepsis New/Unexplained Change in Mental Status Sepsis Action Taken by Nursing 07/08/20 07:01 07/08/20 07:10 07/08/20 07:20 Temperature Temperature Source Pulse Rate 91 H 92 H 91 H Pulse Rate [Finger] Pulse Rate from SpO2 Sensor 92 H 90 Pulse Rhythm [Finger] Respiratory Rate 23 22 19 Respiratory Effort / Characteristics Respiratory Depth Respiratory Pattern Blood Pressure Blood Pressure [Right Arm] Blood Pressure Mean Blood Pressure Mean [Right Arm] Blood Pressure Position [Right Arm] Pulse Oximetry 97 97 Oxygen Delivery Method Room Air Sepsis Recent Fever Within 48 Hours Sepsis New/Unexplained Change in Mental Status Sepsis Action Taken by Nursing 07/08/20 07:30 07/08/20 07:31 07/08/20 07:41 Temperature Temperature Source Pulse Rate 88 90 94 H Pulse Rate [Finger] Pulse Rate from SpO2 Sensor 88 90 94 H Pulse Rhythm [Finger] Respiratory Rate 20 19 12 Respiratory Effort / Characteristics Respiratory Depth Respiratory Pattern Blood Pressure Blood Pressure [Right Arm] Blood Pressure Mean Blood Pressure Mean [Right Arm] Blood Pressure Position [Right Arm] Pulse Oximetry 98 95 99 Oxygen Delivery Method Room Air Room Air Room Air Sepsis Recent Fever Within 48 Hours Sepsis New/Unexplained Change in Mental Status Sepsis Action Taken by Nursing 07/08/20 07:50 07/08/20 08:00 07/08/20 08:01 Temperature Temperature Source Pulse Rate 93 H 93 H 90 Pulse Rate [Finger] Pulse Rate from SpO2 Sensor 93 H 93 H 90 Pulse Rhythm [Finger] Respiratory Rate 16 19 18 Respiratory Effort / Characteristics Respiratory Depth Respiratory Pattern Blood Pressure Blood Pressure [Right Arm] Blood Pressure Mean Blood Pressure Mean [Right Arm] Blood Pressure Position [Right Arm] Pulse Oximetry 98 97 97 Oxygen Delivery Method Room Air Room Air Room Air Sepsis Recent Fever Within 48 Hours Sepsis New/Unexplained Change in Mental Status Sepsis Action Taken by Nursing 07/08/20 08:11 07/08/20 08:20 07/08/20 08:30 Temperature Temperature Source Pulse Rate 91 H 91 H 90 Pulse Rate [Finger] Pulse Rate from SpO2 Sensor 91 H 92 H 90 Pulse Rhythm [Finger] Respiratory Rate 20 15 22 Respiratory Effort / Characteristics Respiratory Depth Respiratory Pattern Blood Pressure 179/111 H 196/121 H Blood Pressure [Right Arm] Blood Pressure Mean 133 146 Blood Pressure Mean [Right Arm] Blood Pressure Position [Right Arm] Pulse Oximetry 97 98 97 Oxygen Delivery Method Room Air Room Air Room Air Sepsis Recent Fever Within 48 Hours Sepsis New/Unexplained Change in Mental Status Sepsis Action Taken by Nursing 07/08/20 08:31 07/08/20 08:37 07/08/20 08:41 Temperature Temperature Source Pulse Rate 90 87 83 Pulse Rate [Finger] Pulse Rate from SpO2 Sensor 90 87 83 Pulse Rhythm [Finger] Respiratory Rate 14 18 25 H Respiratory Effort / Characteristics Respiratory Depth Respiratory Pattern Blood Pressure 159/95 H 164/92 H Blood Pressure [Right Arm] Blood Pressure Mean 116 116 Blood Pressure Mean [Right Arm] Blood Pressure Position [Right Arm] Pulse Oximetry 97 98 98 Oxygen Delivery Method Room Air Sepsis Recent Fever Within 48 Hours Sepsis New/Unexplained Change in Mental Status Sepsis Action Taken by Nursing 07/08/20 08:45 07/08/20 08:50 07/08/20 09:00 Temperature Temperature Source Pulse Rate 85 85 95 H Pulse Rate [Finger] Pulse Rate from SpO2 Sensor 85 85 95 H Pulse Rhythm [Finger] Respiratory Rate 20 17 20 Respiratory Effort / Characteristics Respiratory Depth Respiratory Pattern Blood Pressure 184/110 H 181/106 H Blood Pressure [Right Arm] Blood Pressure Mean 134 131 Blood Pressure Mean [Right Arm] Blood Pressure Position [Right Arm] Pulse Oximetry 99 98 100 Oxygen Delivery Method Room Air Room Air Room Air Sepsis Recent Fever Within 48 Hours Sepsis New/Unexplained Change in Mental Status Sepsis Action Taken by Nursing Laboratory Data Result diagrams: 07/08/20 04:51 07/08/20 05:56 Lab Results 07/08/20 07/08/20 07/08/20 Range/Units 04:51 04:51 04:57 WBC 6.13 (4.8-10.8) K/uL RBC 4.25 L (4.7-6.1) M/uL Hgb 12.2 L (14.0-18.0) g/dL Hct 35.3 L (42-52) % MCV 83.1 (80-100) fL MCH 28.7 (25-34) pg MCHC 34.6 (32-36) g/dL RDW Std Deviation 36.8 (36.4-46.3) fL RDW Coeff of Cynthia 12.2 (11.5-14.5) % Plt Count 332 (130-400) K/uL MPV 9.7 (7.4-10.4) fL Immature Gran % (Auto) 0.2 % Neut % (Auto) 64.5 % Lymph % (Auto) 23.0 % [place] % (Auto) 11.1 % Eos % (Auto) 1.0 % Baso % (Auto) 0.2 % Neut # (Auto) 3.96 (1.4-6.5) K/uL Lymph # (Auto) 1.41 (1.2-3.4) K/uL [place] # (Auto) 0.68 H (0.11-0.59) K/uL Eos # (Auto) 0.06 (0-0.5) K/uL Baso # (Auto) 0.01 (0-0.2) K/uL Immature Gran # (Auto) 0.01 (0.00-0.02) K/uL ABG pH ABG pCO2 ABG pO2 ABG HCO3 ABG O2 Saturation ABG Base Excess Atif Test Barometric Pressure Oxygen Given Sodium 131 L (136-145) mmol/L Potassium (3.5-5.1) mmol/L Chloride 98 (98-107) mmol/L Carbon Dioxide 28 (21-32) mmol/L Anion Gap 5.0 (3-11) BUN 19 H (7-18) mg/dl Creatinine 0.87 (0.6-1.4) mg/dl Est Cr Clr Drug Dosing 153.8 ml/min Est GFR ( Amer) 120.8 Est GFR (Non-Af Amer) 104.2 BUN/Creatinine Ratio 21.7 H (10-20) Glucose 405 H* (70-99) mg/dl POC Glucose (70-99) mg/dl Estimat Average Glucose 329 mg/dl Hemoglobin A1c 13.1 H (4.5-5.6) % Calcium 9.2 (8.5-10.1) mg/dl Total Bilirubin 0.5 (0.2-1) mg/dl AST (15-37) U/L ALT 18 (12-78) U/L Alkaline Phosphatase 107 (45-117) U/L Total Protein 8.5 H (6.4-8.2) gm/dl Albumin 2.7 L (3.4-5.0) gm/dl Globulin 5.8 H (2.5-4.0) gm/dl Albumin/Globulin Ratio 0.5 L (0.9-2) Beta-Hydroxybutyric Acd (0.2-2.81) mg/dl Urine Color Urine Appearance (Clear) Urine pH (4.5-7.5) Ur Specific [place] (1.000-1.030) Urine Protein (Negative) Urine Glucose (UA) (Negative) Urine Ketones (Negative) Urine Blood (Negative) Urine Nitrite (Negative) Urine Bilirubin (Negative) Urine Urobilinogen (Negative) Ur Leukocyte Esterase (Negative) Urine WBC (Auto) (0-5) /hpf Urine RBC (Auto) (0-4) /hpf U Hyaline Cast (Auto) (0-5) /lpf U Epithel Cells (Auto) (0-5) /lpf Urine Bacteria (Auto) (Negative) COVID-19 Eval Order SARS-CoV-2, RNA, NAAT (NEGATIVE) 07/08/20 07/08/20 07/08/20 Range/Units 05:56 06:20 07:41 WBC (4.8-10.8) K/uL RBC (4.7-6.1) M/uL Hgb (14.0-18.0) g/dL Hct (42-52) % MCV (80-100) fL MCH (25-34) pg MCHC (32-36) g/dL RDW Std Deviation (36.4-46.3) fL RDW Coeff of Cynthia (11.5-14.5) % Plt Count (130-400) K/uL MPV (7.4-10.4) fL Immature Gran % (Auto) % Neut % (Auto) % Lymph % (Auto) % Nicol[place] % (Auto) % Eos % (Auto) % Baso % (Auto) % Neut # (Auto) (1.4-6.5) K/uL Lymph # (Auto) (1.2-3.4) K/uL [place] # (Auto) (0.11-0.59) K/uL Eos # (Auto) (0-0.5) K/uL Baso # (Auto) (0-0.2) K/uL Immature Gran # (Auto) (0.00-0.02) K/uL ABG pH ABG pCO2 ABG pO2 ABG HCO3 ABG O2 Saturation ABG Base Excess Atif Test Barometric Pressure Oxygen Given Sodium (136-145) mmol/L Potassium 4.2 (3.5-5.1) mmol/L Chloride (98-107) mmol/L Carbon Dioxide (21-32) mmol/L Anion Gap (3-11) BUN (7-18) mg/dl Creatinine (0.6-1.4) mg/dl Est Cr Clr Drug Dosing ml/min Est GFR ( Amer) Est GFR (Non-Af Amer) BUN/Creatinine Ratio (10-20) Glucose (70-99) mg/dl POC Glucose 359 H* (70-99) mg/dl Estimat Average Glucose mg/dl Hemoglobin A1c (4.5-5.6) % Calcium (8.5-10.1) mg/dl Total Bilirubin (0.2-1) mg/dl AST 5 L (15-37) U/L ALT (12-78) U/L Alkaline Phosphatase (45-117) U/L Total Protein (6.4-8.2) gm/dl Albumin (3.4-5.0) gm/dl Globulin (2.5-4.0) gm/dl Albumin/Globulin Ratio (0.9-2) Beta-Hydroxybutyric Acd 4.50 H (0.2-2.81) mg/dl Urine Color Yellow Urine Appearance Clear (Clear) Urine pH 5.0 (4.5-7.5) Ur Specific [place] 1.040 H (1.000-1.030) Urine Protein 3+ H (Negative) Urine Glucose (UA) 3+ H (Negative) Urine Ketones 1+ H (Negative) Urine Blood 1+ H (Negative) Urine Nitrite Negative (Negative) Urine Bilirubin Negative (Negative) Urine Urobilinogen Negative (Negative) Ur Leukocyte Esterase Negative (Negative) Urine WBC (Auto) 1-5 (0-5) /hpf Urine RBC (Auto) 5-10 H (0-4) /hpf U Hyaline Cast (Auto) 5-10 H (0-5) /lpf U Epithel Cells (Auto) 5-10 H (0-5) /lpf Urine Bacteria (Auto) Negative (Negative) COVID-19 Eval Order SARS-CoV-2, RNA, NAAT (NEGATIVE) 07/08/20 07/08/20 07/08/20 Range/Units 08:36 08:59 09:03 WBC (4.8-10.8) K/uL RBC (4.7-6.1) M/uL Hgb (14.0-18.0) g/dL Hct (42-52) % MCV (80-100) fL MCH (25-34) pg MCHC (32-36) g/dL RDW Std Deviation (36.4-46.3) fL RDW Coeff of Cynthia (11.5-14.5) % Plt Count (130-400) K/uL MPV (7.4-10.4) fL Immature Gran % (Auto) % Neut % (Auto) % Lymph % (Auto) % Nicollet % (Auto) % Eos % (Auto) % Baso % (Auto) % Neut # (Auto) (1.4-6.5) K/uL Lymph # (Auto) (1.2-3.4) K/uL [place] # (Auto) (0.11-0.59) K/uL Eos # (Auto) (0-0.5) K/uL Baso # (Auto) (0-0.2) K/uL Immature Gran # (Auto) (0.00-0.02) K/uL ABG pH Cancelled ABG pCO2 Cancelled ABG pO2 Cancelled ABG HCO3 Cancelled ABG O2 Saturation Cancelled ABG Base Excess Cancelled Atif Test Cancelled Barometric Pressure Cancelled Oxygen Given Cancelled Sodium (136-145) mmol/L Potassium (3.5-5.1) mmol/L Chloride (98-107) mmol/L Carbon Dioxide (21-32) mmol/L Anion Gap (3-11) BUN (7-18) mg/dl Creatinine (0.6-1.4) mg/dl Est Cr Clr Drug Dosing ml/min Est GFR ( Amer) Est GFR (Non-Af Amer) BUN/Creatinine Ratio (10-20) Glucose (70-99) mg/dl POC Glucose 299 H (70-99) mg/dl Estimat Average Glucose mg/dl Hemoglobin A1c (4.5-5.6) % Calcium (8.5-10.1) mg/dl Total Bilirubin (0.2-1) mg/dl AST (15-37) U/L ALT (12-78) U/L Alkaline Phosphatase (45-117) U/L Total Protein (6.4-8.2) gm/dl Albumin (3.4-5.0) gm/dl Globulin (2.5-4.0) gm/dl Albumin/Globulin Ratio (0.9-2) Beta-Hydroxybutyric Acd (0.2-2.81) mg/dl Urine Color Urine Appearance (Clear) Urine pH (4.5-7.5) Ur Specific [place] (1.000-1.030) Urine Protein (Negative) Urine Glucose (UA) (Negative) Urine Ketones (Negative) Urine Blood (Negative) Urine Nitrite (Negative) Urine Bilirubin (Negative) Urine Urobilinogen (Negative) Ur Leukocyte Esterase (Negative) Urine WBC (Auto) (0-5) /hpf Urine RBC (Auto) (0-4) /hpf U Hyaline Cast (Auto) (0-5) /lpf U Epithel Cells (Auto) (0-5) /lpf Urine Bacteria (Auto) (Negative) COVID-19 Eval Order Covid19 IDNow atMMIC SARS-CoV-2, RNA, NAAT (NEGATIVE) 07/08/20 Range/Units 09:03 WBC (4.8-10.8) K/uL RBC (4.7-6.1) M/uL Hgb (14.0-18.0) g/dL Hct (42-52) % MCV (80-100) fL MCH (25-34) pg MCHC (32-36) g/dL RDW Std Deviation (36.4-46.3) fL RDW Coeff of Cynthia (11.5-14.5) % Plt Count (130-400) K/uL MPV (7.4-10.4) fL Immature Gran % (Auto) % Neut % (Auto) % Lymph % (Auto) % [place] % (Auto) % Eos % (Auto) % Baso % (Auto) % Neut # (Auto) (1.4-6.5) K/uL Lymph # (Auto) (1.2-3.4) K/uL [place] # (Auto) (0.11-0.59) K/uL Eos # (Auto) (0-0.5) K/uL Baso # (Auto) (0-0.2) K/uL Immature Gran # (Auto) (0.00-0.02) K/uL ABG pH ABG pCO2 ABG pO2 ABG HCO3 ABG O2 Saturation ABG Base Excess Atif Test Barometric Pressure Oxygen Given Sodium (136-145) mmol/L Potassium (3.5-5.1) mmol/L Chloride (98-107) mmol/L Carbon Dioxide (21-32) mmol/L Anion Gap (3-11) BUN (7-18) mg/dl Creatinine (0.6-1.4) mg/dl Est Cr Clr Drug Dosing ml/min Est GFR ( Amer) Est GFR (Non-Af Amer) BUN/Creatinine Ratio (10-20) Glucose (70-99) mg/dl POC Glucose (70-99) mg/dl Estimat Average Glucose mg/dl Hemoglobin A1c (4.5-5.6) % Calcium (8.5-10.1) mg/dl Total Bilirubin (0.2-1) mg/dl AST (15-37) U/L ALT (12-78) U/L Alkaline Phosphatase (45-117) U/L Total Protein (6.4-8.2) gm/dl Albumin (3.4-5.0) gm/dl Globulin (2.5-4.0) gm/dl Albumin/Globulin Ratio (0.9-2) Beta-Hydroxybutyric Acd (0.2-2.81) mg/dl Urine Color Urine Appearance (Clear) Urine pH (4.5-7.5) Ur Specific [place] (1.000-1.030) Urine Protein (Negative) Urine Glucose (UA) (Negative) Urine Ketones (Negative) Urine Blood (Negative) Urine Nitrite (Negative) Urine Bilirubin (Negative) Urine Urobilinogen (Negative) Ur Leukocyte Esterase (Negative) Urine WBC (Auto) (0-5) /hpf Urine RBC (Auto) (0-4) /hpf U Hyaline Cast (Auto) (0-5) /lpf U Epithel Cells (Auto) (0-5) /lpf Urine Bacteria (Auto) (Negative) COVID-19 Eval Order SARS-CoV-2, RNA, NAAT NEGATIVE (NEGATIVE) Administered Medications Sodium Chloride (Nss 1000ml) 1,000 mls @ 80 mls/hr IV .[id number] [facility] Stop: 08/07/20 10:59 Last Admin: 07/08/20 23:12 Dose: 80 mls/hr Documented by: [id number] Infusion: 07/08/20 23:12 Dose: 80 mls/hr Documented by: [id number] Admin: 07/08/20 11:07 Dose: 80 mls/hr Documented by: [id number] Insulin Aspart (Insulin Aspart 100 Units/Ml 3 Ml Pen) 0 units SC ACHS ELIAN Stop: 08/07/20 07:29 Last Admin: 07/08/20 22:00 Dose: Not Given Documented by: [id number] Cosigned by: [id number] Admin: 07/08/20 17:19 Dose: 8 units Documented by: [id number] Cosigned by: [id number] Admin: 07/08/20 12:47 Dose: Not Given Documented by: [id number] Cosigned by: [id number] Admin: 07/08/20 10:56 Dose: Not Given Documented by: [id number] Cosigned by: [id number] Insulin Glargine (Insulin Glargine Solostar 100 Units/Ml 3 Ml Pen) 25 units SC HS [facility]; Protocol Stop: 08/07/20 20:59 Last Admin: 07/08/20 21:59 Dose: 25 units Documented by: [id number] Cosigned by: [id number] Discontinued Medications Gadobutrol (Gadobutrol 65ml Vial) 12.4 ml IV ONCE ONE Stop: 07/08/20 21:29 Last Admin: 07/08/20 21:28 Dose: 12.4 ml Documented by: [id number] Sodium Chloride (Nss 1000ml) 1,000 mls @ 999 mls/hr IV .Q1H1M ONE Stop: 07/08/20 06:55 Last Infusion: 07/08/20 06:57 Dose: 0 mls/hr Documented by: [id number] Admin: 07/08/20 05:56 Dose: 999 mls/hr Documented by: [id number] Insulin Human Regular 250 (units/ Sodium Chloride) 250 mls @ 2 mls/hr IV .Q24H ELIAN; Protocol Stop: 08/07/20 07:29 Last Titration: 07/08/20 21:47 Dose: 0 units/hr, 0 mls/hr Documented by: [id number] Cosigned by: [id number] Titration: 07/08/20 20:06 Dose: 2 units/hr, 2 mls/hr Documented by: [id number] Cosigned by: [id number] Titration: 07/08/20 19:07 Dose: 2 units/hr, 2 mls/hr Documented by: [id number] Cosigned by: [id number] Titration: 07/08/20 18:02 Dose: 2 units/hr, 2 mls/hr Documented by: [id number] Cosigned by: [id number] Titration: 07/08/20 17:32 Dose: 0 units/hr, 0 mls/hr Documented by: [id number] Cosigned by: [id number] Titration: 07/08/20 16:34 Dose: 3.4 units/hr, 3.4 mls/hr Documented by: [id number] Cosigned by: [id number] Titration: 07/08/20 15:37 Dose: 3.4 units/hr, 3.4 mls/hr Documented by: [id number] Cosigned by: [id number] Titration: 07/08/20 13:38 Dose: 2.8 units/hr, 2.8 mls/hr Documented by: [id number] Cosigned by: [id number] Titration: 07/08/20 12:30 Dose: 2.3 units/hr, 2.3 mls/hr Documented by: [id number] Cosigned by: [id number] Titration: 07/08/20 11:52 Dose: 0 units/hr, 0 mls/hr Documented by: [id number] Cosigned by: [id number] Titration: 07/08/20 11:08 Dose: 3.8 units/hr, 3.8 mls/hr Documented by: [id number] Cosigned by: [id number] Admin: 07/08/20 11:08 Dose: 3.8 units/hr, 3.8 mls/hr Documented by: [id number] Cosigned by: [id number] Titration: 07/08/20 09:46 Dose: 3.8 units/hr, 3.8 mls/hr Documented by: [id number] Cosigned by: [id number] Admin: 07/08/20 08:32 Dose: 3.2 units/hr, 3.2 mls/hr Documented by: [id number] Cosigned by: [id number] Insulin Glargine (Insulin Glargine Solostar 100 Units/Ml 3 Ml Pen) 50 units SC ONE ONE; Protocol Stop: 07/08/20 11:31 Last Admin: 07/08/20 12:49 Dose: 50 units Documented by: [id number] Cosigned by: [id number] Ioversol (Ioversol 100ml) 94 ml IV ONCE ONE Stop: 07/08/20 06:39 Last Admin: 07/08/20 06:39 Dose: 94 ml Documented by: [id number] Ketorolac Tromethamine (Ketorolac 30 Mg/Ml Vial) 30 mg IV NOW ONE Stop: 07/08/20 05:40 Last Admin: 07/08/20 05:56 Dose: 30 mg Documented by: [id number] Metoprolol Tartrate (Metoprolol Tartrate 1 Mg/Ml Vial) 5 mg IV NOW STA Stop: 07/08/20 08:13 Last Admin: 07/08/20 08:30 Dose: 5 mg Documented by: [id number] Rafa (Insulin Protocol Goal Range ) 1 ea N/A ONE ONE Stop: 07/08/20 07:23 Last Admin: 07/08/20 08:40 Dose: 1 ea Documented by: [id number] Rafa (Moderate Stress Level ) 1 ea N/A ONE ONE Stop: 07/08/20 07:23 Last Admin: 07/08/20 08:40 Dose: 1 ea Documented by: [id number] Rafa (Pending Order) 1 ea N/A Q6 ELIAN Stop: 08/07/20 15:59 Last Admin: 07/08/20 19:27 Dose: Not Given Documented by: [id number] Admin: 07/08/20 19:27 Dose: Not Given Documented by: [id number] Discharge Plan Visit Data Chief Complaint: Foot Injury/Pain Stated Complaint: FOOT WOUND,SWOLLEN ANKLE,NO MORPHINE ED Provider: Monik Loving Discharge Problem: DKA (diabetic ketoacidoses), Diabetic foot ulcer, Acute hyponatremia, Hypertension Patient Disposition: Admitted As Inpatient Discharge Instructions Interventions: ED Discharge Assessment Last Done: 07/08/20 10:29 Discharge Problem: DKA (diabetic ketoacidoses) Qualifiers: Diabetes mellitus type: type 2 Diabetes mellitus complication detail: without coma Qualified Code(s): E11.10 - Type 2 diabetes mellitus with ketoacidosis without coma Diabetic foot ulcer Qualifiers: Diabetic foot ulcer location: midfoot Diabetes mellitus type: type 2 Lateralit y: left Non-pressure ulcer stage: with fat layer exposed Qualified Code(s): E11.621 - Type 2 diabetes mellitus with foot ulcer Hypertension Qualifiers: Hypertension type: unspecified secondary hypertension Qualified Code(s): I15.9 - Secondary hypertension, unspecified
[2020-07-08 05:17] LABS: Basophils # (auto) 0.01 K/uL (0-0.2); Basophils % (auto) 0.2 %; Eosinophils # (auto) 0.06 K/uL (0-0.5); Hematocrit (blood only) 35.3 % (42-52); Hemoglobin 12.2 g/dL (14.0-18.0); Immature Granulocytes # (auto) 0.01 K/uL (0.00-0.02); Immature Granulocytes % (auto) 0.2 %; Lymphocytes # (auto) 1.41 K/uL (1.2-3.4); Mean Corpuscular Hemoglobin 28.7 pg (25-34); Mean Corpuscular Hgb Conc 34.6 g/dL (32-36); Mean Corpuscular Volume 83.1 fL (80-100); Mean Platelet Volume 9.7 fL (7.4-10.4); Monocytes # (auto) 0.68 K/uL (0.11-0.59); Monocytes % (auto) 11.1 %; Neutrophils # (auto) 3.96 K/uL (1.4-6.5); Neutrophils % (auto) 64.5 %; Platelet Count 332 K/uL (130-400); RDW Coefficient of Variation 12.2 % (11.5-14.5); RDW Standard Deviation 36.8 fL (36.4-46.3); Red Blood Count 4.25 M/uL (4.7-6.1); White Blood Count 6.13 K/uL (4.8-10.8)
[2020-07-08] MEDS ORDERED: KETOROLAC 30 MG/ML VIAL IV ONE (05:39)
[2020-07-08 05:53] LABS: Albumin Globulin Ratio 0.5 (0.9-2); Albumin Level 2.7 gm/dl (3.4-5.0); BUN Creatinine Ratio 21.7 (10-20); Bilirubin,Total 0.5 mg/dl (0.2-1); Calcium 9.2 mg/dl (8.5-10.1); Creatinine Clr Calc Pharmacy 153.8 ml/min; Est GFR (African American) 120.8; Est GFR (Non-African American) 104.2; Globulin 5.8 gm/dl (2.5-4.0); Total Protein 8.5 gm/dl (6.4-8.2)
[2020-07-08] MEDS ORDERED: SODIUM CHLORIDE 0.9% 1000ML 1,000 ML IV ONE (05:55)
[2020-07-08 06:26] LABS: Potassium 4.2 mmol/L (3.5-5.1)
[2020-07-08 06:34] LABS: Beta-Hydroxybutyrate 4.5 mg/dl (0.2-2.81)
[2020-07-08] MEDS ORDERED: OPTIRAY 320 100ml IV ONE (06:38)
--- NOTE | 2020-07-08 06:40 | Ultrasound Report ---
LEFT LOWER EXTREMITY VENOUS DOPPLER CLINICAL HISTORY: Left leg swelling. COMPARISON STUDY: No previous studies for comparison. TECHNIQUE: Sonography of the deep venous system of the left lower extremity was performed. Compressi on and augmentation were evaluated. FINDINGS: The left common femoral, superficial femoral and popliteal veins were compressible. Augmen tation was normal. Flow was shown within the deep calf vessels. Note is made of several enlarged left inguinal lymph nodes. Index left inguinal lymph node measures 4.7 x 1.9 x 2.7 cm. This node contains a fatty hilum. Cortex is thickened. IMPRESSION: 1. No evidence of deep venous thrombus within the left lower extremity. 2. Nonspecific mild left inguinal lymphadenopathy. ACT 112: Negative or not required by law. Electronically signed by: Matheus Perez M.D. 07/08/2020 6:39 AM
[2020-07-08 06:45] LABS: Appearance Urine Clear (Clear); Bacteria Urine Automated Negative (Negative); Bilirubin Urine Negative (Negative); Blood Urine 1+ (Negative); Color Urine Yellow; Glucose Urine UA 3+ (Negative); Ketones Urine 1+ (Negative); Leukocyte Esterase Urine Negative (Negative); Nitrite Urine Negative (Negative); Protein Urine 3+ (Negative); Urobilinogen Urine Negative (Negative)
--- NOTE | 2020-07-08 06:48 | XRay Report ---
XR foot LT min 3V routine CLINICAL HISTORY: eval for osteo - 5th metatarsal COMPARISON: None FINDINGS: No acute fracture within the left foot is noted. There is lucency projecting over the left fifth metatarsophalangeal joint. While not definitive, this could reflect a wound. There is no evide nce for osteomyelitis at this site. Note is made of osseous erosions within the left midfoot, particu larly affecting the navicular which is diminutive and irregular as well sclerotic. Lateral view demon strates joint space widening within the articulations with adjacent soft tissue calcification. These findings are age indeterminate although probably chronic. Left foot soft tissue swelling is present. IMPRESSION: 1. No acute fracture. 2. Possible wound at the level of the left first metatarsophalangeal joint. No evidence for osteomyel itis at this site. 3. Midfoot bony erosion, particularly affecting the navicular which is irregular, small and sclerotic . Associated joint space widening and soft tissue calcifications. These findings are age indeterminat e although probably chronic. Correlation with prior imaging studies would be of benefit. The findings may be posttraumatic or represent neuropathic arthropathy. ACT 112: Negative or not required by law. Electronically signed by: Matheus Perez M.D. 07/08/2020 6:47 AM
[2020-07-08] MEDS ORDERED: MODERATE STRESS LEVEL ONE (07:22)
[2020-07-08] MEDS ORDERED: INSULIN PROTOCOL GOAL RANGE ONE (07:22)
--- NOTE | 2020-07-08 08:04 | CT Scan Report ---
ABDOMEN AND PELVIS CT WITH IV CONTRAST CT DOSE: 1170.67 mGycm HISTORY: eval abdominal lymphadenopathy TECHNIQUE: Multiaxial CT images of the abdomen and pelvis were performed following the use of intrave nous contrast. A dose lowering technique was utilized adhering to the principles of ALARA. COMPARISON STUDY: None. FINDINGS: The lung bases are clear. No pneumoperitoneum. No pneumatosis. No suspicious lytic are nora tic osseous lesions. The liver, gallbladder, spleen, adrenal glands, pancreas, and kidneys are unrema rkable. No hydronephrosis. There are few prominent periportal lymph nodes. However, these remain subc entimeter in short axis diameter and therefore do not meet CT criteria for pathologic involvement. Do minant portacaval lymph node measures 2.2 x 0.9 cm. Otherwise, no retroperitoneal lymphadenopathy. Bustillo bcentimeter pelvic sidewall lymph nodes are also within the range normal limits. The bladder is decom pressed and not well evaluated. The prostate gland is normal in size. A few colonic diverticula. No e vidence for acute diverticulitis. No bowel wall thickening or obstruction. Normal appendix. IMPRESSION: 1. A few prominent periportal lymph nodes which are at the upper limits of normal for size. Otherwise , no lymphadenopathy identified in the abdomen or pelvis. 2. No bowel wall thickening or obstruction. 3. Normal appendix. 4. No hydronephrosis. ACT 112: Negative or not required by law. Electronically signed by: Parish Antonio M.D. 07/08/2020 8:02 AM
[2020-07-08] MEDS ORDERED: METOPROLOL TARTRATE 1 MG/ML VIAL IV STA (08:12)
[2020-07-08] MEDS: INSULIN REGULAR 250 UNITS in SODIUM CHLORIDE 0.9% 247.5 ML IV SCH ×2 (08:32→11:08)
[2020-07-08 09:22] LABS: Allen Test Pos (Pos); Base Excess ABG 2.2 mEq/L (-9-1.8); HCO3 ABG 27 mmol/L (19-24); Oxygen Saturation ABG 96.7 % (90-95); PCO2 ABG 42 mmHg (35-46); PO2 ABG 86 mmHg (80-95); pH ABG 7.43 (7.35-7.45)
[2020-07-08] MEDS ORDERED: GLUCAGON FOR INJ 1 MG VIAL SQ PRN (10:52)
[2020-07-08] MEDS ORDERED: DEXTROSE 50% 50 ML SYRINGE IV PRN (10:52)
[2020-07-08] MEDS ORDERED: CARBOHYDRATES FOR HYPOGLYCEMIA PO PRN (10:52)
[2020-07-08] MEDS ORDERED: ONDANSETRON INJ 2 MG/ML 2 ML VIAL IV PRN (10:52)
[2020-07-08] MEDS ORDERED: ACETAMINOPHEN 325 MG TAB PO PRN (10:52)
[2020-07-08] MEDS ORDERED: GLUCOSE 40% GEL 15 GM TUBE PO PRN (10:52)
[2020-07-08] MEDS ORDERED: GLUCOSE 10 TABS/TUBE PO PRN (10:52)
[2020-07-08] MEDS: INSULIN ASPART 100 UNITS/ML 3 ML PEN SC SCH ×4 (10:56→22:00)
[2020-07-08] MEDS ORDERED: PHARMACY GLYCEMIC MGMT CONSULT PRN (11:00)
[2020-07-08] MEDS: SODIUM CHLORIDE 0.9% 1000ML 1,000 ML IV SCH ×2 (11:07→23:12)
[2020-07-08] MEDS ORDERED: INSULIN GLARGINE SOLOSTAR 100 UNITS/ML 3 ML PEN SC ONE (11:30)
[2020-07-08 12:41] LABS: Estimated Average Glucose 329 mg/dl; Hemoglobin A1C 13.1 % (4.5-5.6)
--- NOTE | 2020-07-08 15:20 | Pharmacy Report ---
Pharmacy Glycemic Short Note 2 - Date of Service July 08, 2020 - Glycemic Short BSG Results (Last 24 hours): 07/08/20 07/08/20 07/08/20 04:51 07:41 08:59 Glucose 405 H* POC Glucose 359 H* 299 H 07/08/20 07/08/20 07/08/20 09:42 10:44 11:49 Glucose POC Glucose 310 H* 259 H 167 H 07/08/20 07/08/20 13:32 14:25 Glucose POC Glucose 214 H 208 H OUTPATIENT ANTIDIABETIC REGIMEN: * Soliqua 30 units SQ daily (not taking) * Metformin 1000 mg PO BIDM (not taking) * HbA1c = 13.1% (07/08/20) ASSESSMENT: * 45 yo M admitted secondary to LLE pain/swelling. Patient has not taken any medications for type 2 diabetes in over a year per CDE. His previous medications can be seen above. Per CDE, patient is agreeable to Lantus and Metformin upon discharge. * Admission BSG was 405 mg/dL. He did have ketonuria as well as a K of 4.2 mg/dL. His pH and anion gap were normal. Beta-hydroxybutyric acid was slightly elevated at 4.50. * Patient was started on an insulin drip for hyperglycemia. No bolus was given. Since then, BSGs have been [phone] mg/dL. The average drip rate to this point has been ~3 units/hr. * Gave 50 units of Lantus at lunchtime. * Will continue insulin drip for the time being. PLAN FOR INPATIENT GLYCEMIC CONTROL: * Continue insulin drip for moderate stress based on a goal range of 110 - 180 mg/dL * May stop insulin drip IF: 2 consecutive BSGs 150 mg/dL or less AND insulin drip running at 1.5 units/hr or less * Basal insulin * Lantus 50 units SQ x 1, then 25 units SQ BID * Bolus insulin * Per insulin infusion calculator for now
--- NOTE | 2020-07-08 17:17 | History & Physical Report ---
Date of Service July 08, 2020 Assessment & Plan (1) Diabetic foot ulcer: Originally occurred in 04/2020 and has been treating it with topical therapy. No oral or IV abx. - No surrounding erythema, no purulence. No signs/symptoms of sepsis. - Consulted orthopedics and have discussed it with their team twice today. Presently low concern for acute infection. Planning to get MRI. Defer abx for now. - Wound care consulted (2) DKA (diabetic ketoacidoses): Mild DKA with positive beta-hydroxybuterate, but normal AG. A1c is 13.1%, indicating average glucose of 330 in the last 3 months. - On insulin infusion at present - Glycemic pharmacist consulted - A1c - Glycemic educator when able (3) Hypertension: Hx of HTN previously on lisinopril. Nothing in the last year or so. - Will plan to restart lisinopril (4) Acute hyponatremia: Pseudohyponatremia from hyperglycemic. - Monitor (5) DVT prophylaxis: SCDs - Low DVT risk per admission calculator & given possibility of surgery on left foot. Admission and Anticipated Discharge Date Admission Date: July 08, 2020 History of Present Illness Primary Care Provider: Felix Esparza MD Pleasant 45yo M w/ hx of DM and HTN who presents with left foot pain. He reports that he had been on insulin about 2 years ago. He reports a physician told him he was going to , and so he never went back to that physician. Eventually, his refills ran out, and he never went back to a different physician and just stopped taking any medications. He felt he had been doing "pretty good for [himself]" up until this past April when he had an ulcer develop on his left sole of his foot. He has been using Neosporin antibiotic treatment for several months as well as bandaging it. This past Saturday, the left foot became more painful to walk on. On Saturday, it became swollen as well. He reports the pain as a throbbing pain that went all the way up the knee. He feels that it is better today. He denies any purulence or drainage from the foot. Denies any systemic fevers or chills, no nausea or vomiting. Allergies Allergy/AdvReac Type Severity Reaction Status Date / Time morphine AdvReac Intermediate PER PT Verified 07/08/20 07:50 "CONFUSION, LOOPY, OUT OF MY MIND". Home Medications Medication Instructions Recorded Confirmed Type acetaminophen [Tylenol Extra 1,000 mg PO Q6H PRN 07/08/20 07/08/20 History Strength] Past Med/Surg History Medical History Diabetes Hypertension Surgical History H/O colonoscopy Family History Other Diabetes Social History Smoking Status: Never smoker Hx Alcohol Use: No Hx Substance Use: No Sem Manager Required: No Beliefs That Will Affect Care: Christian Current Living Situation: Parent Other Information That Helps Us Care for You: No Feels Safe at Home: Yes Safety Concerns: Feels Safe At This Time Assistive Devices: Glasses Review of Systems Review of Systems: All systems reviewed & are unremarkable except as noted in HPI & below Physical Exam Constitutional: WD/WN, vitals as above Eyes: EOM intact bilaterally; no conjunctival abnormality ENMT: external ear and nose normal, oropharynx normal Neck: trachea midline, no thyromegaly normal visual inspection Respiratory: normal respiratory effort, lungs clear to auscultation no respiratory distress Cardiovascular: RRR, no murmur, no edema Gastrointestinal (Abdomen): Inspection/Auscultation: abdomen normal to inspection; abdomen not distended Musculoskeletal: no cyanosis or clubbing, extremities motor strength 5/5 Skin: no rashes, warm and dry + ulcer (Ball of left foot. No purulence, no drainage. No surrounding warmth.) and + lichenification Neurologic: moves all extremities and awake Psychiatric: Orientation: alert, oriented to person and cooperative Results & Data Results & Data ([facility]) Vital Signs (Past 12 Hours) Vital Signs Temp Pulse Pulse Resp BP BP Pulse Ox 07/08/20 15:17 36.9 C 88 18 152/82 H 97 07/08/20 11:24 37.1 C 111 H 18 163/86 H 99 07/08/20 10:30 84 15 140/85 97 07/08/20 10:29 85 18 152/82 H 97 02/12/21 10:21 83 25 H 95 02/12/21 10:15 84 23 152/82 H 93 07/08/20 10:10 83 21 96 07/08/20 10:00 84 12 165/86 H 96 07/08/20 09:51 84 12 97 07/08/20 09:45 85 21 151/89 H 98 07/08/20 09:41 85 10 L 99 07/08/20 09:30 84 12 147/91 H 97 07/08/20 09:20 89 25 H 98 07/08/20 09:15 85 16 163/94 H 98 07/08/20 09:11 16 99 07/08/20 09:00 95 H 20 181/106 H 100 07/08/20 08:50 85 17 98 07/08/20 08:45 85 20 184/110 H 99 07/08/20 08:41 83 25 H 98 07/08/20 08:37 87 18 164/92 H 98 07/08/20 08:31 90 14 159/95 H 97 07/08/20 08:30 90 22 196/121 H 97 07/08/20 08:20 91 H 15 98 07/08/20 08:11 91 H 20 179/111 H 97 07/08/20 08:01 90 18 97 07/08/20 08:00 93 H 19 97 07/08/20 07:50 93 H 16 98 07/08/20 07:41 94 H 12 99 07/08/20 07:31 90 19 95 07/08/20 07:30 88 20 98 07/08/20 07:20 91 H 19 97 07/08/20 07:10 92 H 22 07/08/20 07:01 91 H 23 97 07/08/20 07:00 91 H 23 179/117 H 97 07/08/20 06:50 93 H 21 99 07/08/20 06:47 93 H 18 197/113 H 99 07/08/20 06:43 94 H 10 L 197/113 H 98 07/08/20 06:40 98 H 24 99 07/08/20 06:38 17 07/08/20 06:20 96 H 18 97 07/08/20 06:10 93 H 20 96 07/08/20 06:08 96 H 13 97 07/08/20 06:07 99 H 24 191/101 H 97 07/08/20 05:30 102 H 18 191/101 H 98 Code Status & VTE Plan VTE Prophylaxis Plan VTE Prophylaxis will be ordered: Yes PG Care Time/CCT Total # of Minutes Spent Total Time Spent with Patient: Total time spent is greater than 50% in coordination of care (as documented) at patient's floor/unit and/or counseling patient: Coding Level of Care Code 60949 Initial Inpt Care Lvl 3 Diagnoses Diabetic foot ulcer E11.621; L97.422 Diabetes mellitus type: type 2 Diabetic foot ulcer location: midfoot Laterality: left Non-pressure ulcer stage: with fat layer exposed DKA (diabetic ketoacidoses) E11.10 Diabetes mellitus complication detail: without coma Diabetes mellitus type: type 2 Hypertension I15.9 Hypertension type: unspecified secondary hypertension Acute hyponatremia E87.1 DVT prophylaxis Z29.9 (1) Diabetic foot ulcer Diabetes mellitus type: type 2 Diabetic foot ulcer location: midfoot Laterality: left Non-pressure ulcer stage: with fat layer exposed Qualified Code(s): E11.621 - Type 2 diabetes mellitus with foot ulcer; L97.422 - Non- pressure chronic ulcer of 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
[2020-07-08] MEDS ORDERED: INSULIN GLARGINE SOLOSTAR 100 UNITS/ML 3 ML PEN SC SCH (21:00)
[2020-07-08] MEDS ORDERED: GADOBUTROL 65ML VIAL IV ONE (21:28)
[2020-07-09 06:43] LABS: Hematocrit (blood only) 33.6 % (42-52); Hemoglobin 11.2 g/dL (14.0-18.0); Mean Corpuscular Hemoglobin 28.1 pg (25-34); Mean Corpuscular Hgb Conc 33.3 g/dL (32-36); Mean Corpuscular Volume 84.4 fL (80-100); Mean Platelet Volume 9.4 fL (7.4-10.4); Platelet Count 341 K/uL (130-400); RDW Coefficient of Variation 12.4 % (11.5-14.5); RDW Standard Deviation 38.3 fL (36.4-46.3); Red Blood Count 3.98 M/uL (4.7-6.1); White Blood Count 5.32 K/uL (4.8-10.8)
[2020-07-09 07:11] LABS: Creatinine Clr Calc Pharmacy 213.7 ml/min; Est GFR (African American) 138.9; Est GFR (Non-African American) 119.8; Potassium 3.6 mmol/L (3.5-5.1)
--- NOTE | 2020-07-09 08:13 | Magnetic Resonance Report ---
MRI OF THE LEFT FOREFOOT WITHOUT AND WITH CONTRAST CLINICAL HISTORY: Diabetic foot ulcer. COMPARISON STUDY: X-ray study dated 07/08/2020 FINDINGS: Images were obtained in the axial, sagittal, and coronal planes, before and after the administration of 12.4 cc of intravenous Gadavist. Within the forefoot, there is a navicular fracture. There is diffuse tarsal bone marrow edema. The fi ndings are felt to be on a neuropathic basis. There are no fluid collections suspicious for an abscess. There is diffuse dorsal soft tissue edema. There is edema within the intrinsic musculature of the sarah t consistent with a myositis.There is T2 marrow edema involving the fifth metatarsal head with an ove rlying soft tissue ulceration. There is equivocal subtle T1 marrow edema. There is also mild T2 edema involving the base of the proximal phalanx the fifth toe. No definite cortical destructive changes a re visualized. There is mild postcontrast enhancement involving the fifth metatarsal head. IMPRESSION: 1. Neuropathic changes within the midfoot 2. Diffuse soft tissue edema most pronounced dorsally 3. Edema within the intrinsic musculature of the foot consistent with a myositis 4. Soft tissue ulceration at the level the fifth metatarsal head. T2 edema, and equivocal subtle jarod esponding T1 edema. The findings are equivocal for early osteomyelitis. 5. No abscess identified ACT 112: Negative or not required by law. Electronically signed by: Angelito Mendoza M.D. 07/09/2020 8:12 AM
[2020-07-09] MEDS: INSULIN ASPART 100 UNITS/ML 3 ML PEN SC SCH ×4 (08:19→20:55)
[2020-07-09] MEDS ORDERED: PNEUMOCOCCAL POLYSACCHARIDES 25 MCG/0.5 ML VIAL/SYR IM ONE (09:00)
[2020-07-09] MEDS ORDERED: PNEUMOCOCCAL ADMINISTRATION CHARGE ONE (09:00)
[2020-07-09] MEDS ORDERED: INSULIN GLARGINE SOLOSTAR 100 UNITS/ML 3 ML PEN SC SCH (09:00)
[2020-07-09] MEDS ORDERED: INFLUENZA VIRUS QUAD VACCINE 0.5 ML SYR IM ONE (09:00)
[2020-07-09] MEDS ORDERED: INFLUENZA ADMINISTRATION CHARGE ONE (09:00)
--- NOTE | 2020-07-09 10:33 | Pharmacy Report ---
Pharmacy Glycemic Short Note 2 - Date of Service July 09, 2020 - Glycemic Short BSG Results (Last 24 hours): 07/08/20 07/08/20 07/08/20 10:44 11:49 13:32 Glucose POC Glucose 259 H 167 H 214 H 07/08/20 07/08/20 07/08/20 14:25 15:31 16:32 Glucose POC Glucose 208 H 217 H 190 H 07/08/20 07/08/20 07/08/20 17:27 19:04 20:03 Glucose POC Glucose 124 H 147 H 135 H 07/08/20 07/08/20 07/09/20 21:35 22:02 06:05 Glucose 140 H POC Glucose 89 112 H 07/09/20 07:26 Glucose POC Glucose 134 H OUTPATIENT ANTIDIABETIC REGIMEN: * Soliqua 30 units SQ daily (not taking) * Metformin 1000 mg PO BIDM (not taking) * HbA1c = 13.1% (07/08/20) ASSESSMENT: 05/08: * Patient received 83 units of insulin + insulin drip (24+ units with drip) * Fasting BSG 140 mg/dL - loaded with 75 units of basal yesterday, plan to scale back with basal and continue with Lantus 25 bid (~30% decrease in basal from yesterday) * Continue with CF/CR PLAN FOR INPATIENT GLYCEMIC CONTROL: * Basal insulin * Lantus 25 units BID * Bolus insulin * Novolog ACHS - CF 15 / CR 5 PLAN FOR DISCHARGE: * A1c 13.1% 07/08/20 - goal A1c ~7% * Patient has not been taking any medications for diabetes prior to admission. Per DM educator notes patient previously on Soliqua (insulin glargline/Lixisenatide = GLP -1 RA) + metformin. Patient agreeable to Lantus + metformin on discharge * Plan to start Lantus 25 units BID for now, will trend BSGs and titrate as necessary
[2020-07-09] MEDS: SODIUM CHLORIDE 0.9% 1000ML 1,000 ML IV SCH (12:23)
--- NOTE | 2020-07-09 13:22 | Hospitalist Progress Note ---
Date of Service July 09, 2020 Assessment & Plan (1) Diabetic foot ulcer: Originally occurred in 04/2020 and has been treating it with topical therapy. No oral or IV abx. MRI on 07/08 showed neuropathic changes within the midfoot, myositis, & equivocal 5th metatarsal early osteomyelitis. - No surrounding erythema, no purulence. No signs/symptoms of sepsis. - Wound care consulted - Consulted orthopedics and have reached out today. Low concern for acute infection. Defer abx for now until I hear from orthopedics. (2) DKA (diabetic ketoacidoses): Mild DKA with positive beta-hydroxybuterate, but normal AG. A1c is 13.1%, indicating average glucose of 330 in the last 3 months. - On insulin infusion on admission. - Glycemic pharmacist consulted -> Moving toward basal-bolus; will determine good outpatient regimen for him to get back on insulin. - Glycemic educator when able (3) Hypertension: Hx of HTN previously on lisinopril. Nothing in the last year or so. BP today is 130/85. - Restart lisinopril (4) DVT prophylaxis: SCDs - Low DVT risk per admission calculator & given possibility of surgery on left foot. Admission and Anticipated Discharge Date Admission Date: July 08, 2020 Subjective Feeling well today. Left foot still swollen, but pain is gone. Reports no fevers/chills, chest pain, shortness of breath, abdominal pain, nausea, or vomiting. Physical Exam Constitutional: WD/WN, vitals as above Eyes: EOM intact bilaterally; no conjunctival abnormality ENMT: external ear and nose normal, oropharynx normal Neck: trachea midline, no thyromegaly normal visual inspection Respiratory: normal respiratory effort, lungs clear to auscultation no respiratory distress Cardiovascular: RRR, no murmur, no edema Gastrointestinal (Abdomen): Inspection/Auscultation: abdomen normal to inspection; abdomen not distended Musculoskeletal: no cyanosis or clubbing, extremities motor strength 5/5 Skin: no rashes, warm and dry + ulcer (Ball of left foot. No purulence, no drainage. No surrounding warmth.) and + lichenification Neurologic: moves all extremities and awake Psychiatric: Orientation: alert, oriented to person and cooperative Results & Data Results & Data ([facility]) Vital Signs (Past 12 Hours) Vital Signs Temp Pulse Resp BP Pulse Ox 07/09/20 11:15 36.3 C L 87 18 132/84 96 07/09/20 07:16 37 C 86 18 153/89 H 97 PG Care Time/CCT Total # of Minutes Spent Total Time Spent with Patient: Total time spent is greater than 50% in coordination of care (as documented) at patient's floor/unit and/or counseling patient: Coding Level of Care Code 07512 Subseq Hosp Care Lvl 2 Diagnoses Diabetic foot ulcer E11.621; L97.422 Diabetes mellitus type: type 2 Diabetic foot ulcer location: midfoot Laterality: left Non-pressure ulcer stage: with fat layer exposed DKA (diabetic ketoacidoses) E11.10 Diabetes mellitus complication detail: without coma Diabetes mellitus type: type 2 Hypertension I15.9 Hypertension type: unspecified secondary hypertension DVT prophylaxis Z29.9 (1) Diabetic foot ulcer Diabetes mellitus type: type 2 Diabetic foot ulcer location: midfoot Laterality: left Non-pressure ulcer stage: with fat layer exposed Qualified Code(s): E11.621 - Type 2 diabetes mellitus with foot ulcer; L97.422 - Non- pressure chronic ulcer of 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
[2020-07-09] MEDS: DOXYCYCLINE HYCLATE 100 MG in DEXTROSE 5% 100 ML IV SCH (17:55)
[2020-07-09] MEDS: CIPROFLOXACIN / D5W 400 MG/200 ML BAG IV SCH (20:01)
[2020-07-09] MEDS: INSULIN GLARGINE SOLOSTAR 100 UNITS/ML 3 ML PEN SC SCH (20:54)
[2020-07-09] MEDS ORDERED: lisinopril 10 MG TAB PO SCH (21:00)
--- NOTE | 2020-07-09 23:15 | Consultation Report ---
DATE OF CONSULTATION: 07/09/2020 PERTINENT HISTORY: This is a 45-year-old gentleman seen at the request of Dr. Tanner Miller and Dr. Felix Esparza for left foot diabetic ulcer of fifth metatarsal. Apparently, the patient was on insulin approximately 2 years ago and he stopped taking his medication and went back to a position for continued support. So he had been self-managing his diabetes. He developed an ulcer on his left foot over approximately last 2 months. He had been self-medicating with Neosporin and bandages. He noted that the foot became more painful since this past Saturday. It became severely swollen and he presented to the Emergency Department at which point he was evaluated and admitted to the hospitalist service. Orthopedics then consulted. MRI was performed. PAST MEDICAL HISTORY: Diabetes mellitus, hypertension. PAST SURGICAL HISTORY: Colonoscopy, otherwise noncontributory. ALLERGIES: MORPHINE WITH CONFUSION. MEDICATIONS: Acetaminophen. SOCIAL HISTORY: Denies tobacco, alcohol or drug use. He lives with his parents. PHYSICAL EXAMINATION: This is a 45-year-old gentleman lying supine in his hospital room bed. He is wearing glasses. He is alert and oriented x3. Speech clear and fluent. Affect is appropriate. Focused exam of left lower extremity demonstrates ulceration measuring approximately 1.75 cm in diameter, 2 mm in depth to the level of the dermis. Local erythema, mild induration. No purulence, no odor. Dorsalis pedis and posterior tibial pulses are 2/4. Mild edema in the forefoot and mid foot. Range of motion is intact. Strength is within normal limits. There was noted lichenification primarily in the right foot; however, there is some evident on the left foot as well. Radiographs and MRI reviewed. MRI in particular demonstrates myositis of the lateral forefoot. There is marrow signal in the fifth metatarsal, but no clear evidence of abscess or osteomyelitis. Inflammation of the muscular tissue consistent with myositis. IMPRESSION: 1. Left foot fifth metatarsal 1.75 cm diameter ulcer. 2. Diabetes mellitus. 3. Neuropathy. 4. Myositis left foot with local cellulitis. RECOMMENDATION: Continue IV antibiotics, nonoperative management at this time. Shoe wear modification with addition of a metatarsal support. Diabetic foot care and followup in the office with Dr. Esteban within the next 7-14 days for reassessment. Thank you for the opportunity to consult in care of this patient.
[2020-07-10] MEDS: SODIUM CHLORIDE 0.9% 1000ML 1,000 ML IV SCH (00:33)
[2020-07-10] MEDS: DOXYCYCLINE HYCLATE 100 MG in DEXTROSE 5% 100 ML IV SCH (05:33)
[2020-07-10] MEDS: CIPROFLOXACIN / D5W 400 MG/200 ML BAG IV SCH (07:40)
[2020-07-10] MEDS: INSULIN ASPART 100 UNITS/ML 3 ML PEN SC SCH ×2 (08:31→11:56)
[2020-07-10] MEDS: INSULIN GLARGINE SOLOSTAR 100 UNITS/ML 3 ML PEN SC SCH (08:32)
--- NOTE | 2020-07-10 15:47 | Discharge Summary ---
Date of Service July 10, 2020 Admission HPI Per Admitting Provider Sanjana 45yo M w/ hx of DM and HTN who presents with left foot pain. He reports that he had been on insulin about 2 years ago. He reports a physician told him he was going to , and so he never went back to that physician. Eventually, his refills ran out, and he never went back to a different physician and just stopped taking any medications. He felt he had been doing "pretty good for [himself]" up until this past April when he had an ulcer develop on his left sole of his foot. He has been using Neosporin antibiotic treatment for several months as well as bandaging it. This past Saturday, the left foot became more painful to walk on. On Saturday, it became swollen as well. He reports the pain as a throbbing pain that went all the way up the knee. He feels that it is better today. He denies any purulence or drainage from the foot. Denies any systemic fevers or chills, no nausea or vomiting. Principal Diagnosis Diabetes Diabetic foot ulcer Discharge Exam Constitutional WD/WN, vitals as above Eyes EOM intact bilaterally; no conjunctival abnormality ENMT external ear and nose normal, oropharynx normal Neck trachea midline, no thyromegaly normal visual inspection Respiratory normal respiratory effort, lungs clear to auscultation no respiratory distress Cardiovascular RRR, no murmur, no edema Gastrointestinal (Abdomen) Inspection/Auscultation: abdomen normal to inspection; abdomen not distended Musculoskeletal no cyanosis or clubbing, extremities motor strength 5/5 Skin no rashes, warm and dry + ulcer (Ball of left foot. No purulence, no drainage. No surrounding warmth.) and + lichenification Neurologic moves all extremities and awake Psychiatric Orientation: alert, oriented to person and cooperative Discharge Data Allergies Allergy/AdvReac Type Severity Reaction Status Date / Time morphine AdvReac Intermediate PER PT Verified 07/08/20 07:50 "CONFUSION, LOOPY, OUT OF MY MIND". Consultations 07/08/20 08:32 ED Decision to Admit Stat 07/08/20 10:52 Consult Orthopedic Surgery Routine Ordered Studies 07/08/20 04:18 US venous doppler LE LT Urgent 07/08/20 06:13 CT abd pelvis IV con only Urgent 07/08/20 13:03 MR foot LT wo/w con Routine Diabetes Follow up Diabetes Follow-up Needed for HgbA1c >9% Hospital Course (1) Diabetic foot ulcer: Originally occurred in 04/2020 and has been treating it with topical therapy. No oral or IV abx. MRI on 07/08 showed neuropathic changes within the midfoot, myositis, & equivocal 5th metatarsal early osteomyelitis. - No surrounding erythema, no purulence. No signs/symptoms of sepsis. - Wound care consulted - Wound culture growing Staph, but this was a superficial culture, so not entirely sure how beneficial it will be. - Consulted orthopedics -> To follow up in 1-2 weeks. - Discharged on doxy & Cipro to cover most common diabetic ulcer bacteria x 2 weeks. (2) DKA (diabetic ketoacidoses): Mild DKA with positive beta-hydroxybuterate, but normal AG. A1c is 13.1%, indicating average glucose of 330 in the last 3 months. - On insulin infusion on admission. - Discharged on Lantus 25 units BID & metformin. To follow up with PCP (or an associate of Dr. Esparza's). (3) Hypertension: Hx of HTN previously on lisinopril. Nothing in the last year or so. BP today is 130/85. - Restarted lisinopril 20 mg PO HS on discharge. (4) DVT prophylaxis: SCDs - Low DVT risk per admission calculator & given possibility of surgery on left foot. Total Time Total Time Spent Total Time Spent (In Minutes): 35 Discharge Plan Discharge Items Patient Disposition: Home - Self-Care Reason For Visit: HYPERGLYCEMIA, DIABETIC FOOT ULCER Discharge Diagnosis: High blood sugar and diabetic foot ulcer Activity: Resume your previous activity Weightbearing: Left partial Weightbearing Comment: Please put as little pressure and weight as possible on the left foot Non-emergency contact: Primary Care Provider and Surgeon Call non-emergency contact if: your symptoms worsen and your temperature is above 101 Follow-up/Referrals: Juan Esparza MD [Primary Care Provider] - Steve Esteban DO [Surgeon] - (Please contact Dr. Esteban's office on Saturday for an appointment in 1-2 weeks.) Diet: Carb Consistent or DM2 and Heart Healthy Addtl Attending Provider Instructions: Mr. Brown, You were admitted to the hospital with foot pain and an ulcer on your foot. In addition, you had high blood sugars. With insulin, we were able to bring your sugars down. The ulcer on your foot might be harder to treat, but you will follow up with Dr. Esteban in 1-2 weeks to make sure it is healing well. Please start to take your lisinopril at night before bedtime as this helps improve your health. Please take the Lantus & metformin twice a day. Please take the antibiotics twice a day as well. Pending Studies at Discharge: No Stand-Alone Forms: My [facility] Diasome, Work/School Release (Inpt), Smoking Cessation Medications and DC Order Prescriptions: New lisinopril 20 mg tablet 20 mg PO HS Qty: 30 RF: 2 Lantus Solostar U-100 Insulin 100 unit/mL (3 mL) Insulin Pen 25 unit SC BID Qty: 15 RF: 1 doxycycline hyclate 100 mg tablet 100 mg PO BID 14 Days Qty: 28 RF: 0 metformin 500 mg tablet extended release 24 hr 500 mg PO BID Qty: 60 RF: 2 ciprofloxacin HCl 500 mg tablet 500 mg PO BID Qty: 28 RF: 0 (DME) pen needle, diabetic [Pen Needle] 32 gauge x 5/32" needle See Rx Instructions .ROUTE .MEDSUPPLY Qty: 50 RF: 0 Continued acetaminophen [Tylenol Extra Strength] 500 mg Tablet 1,000 mg PO Q6H PRN (Reason: Pain) RF: 0 Discharge Orders: Discharge Order (Routine); Ordered 07/10/20 Ordered By: Tanner Miller Admission Data Admit Date/Time: 07/08/20 09:08 Attending Provider: Tanner Miller Admit Provider: Tanner Miller Primary Care Provider: Juan Esparza Other Providers: Tanner Miller ; Steve Esteban Other Interventions: Discharge Summary Assessment (RN) Last Done: 07/10/20 11:18 Coding Level of Care Code D/C Day Management >30 mins Diagnoses Diabetic foot ulcer E11.621; L97.422 Diabetes mellitus type: type 2 Diabetic foot ulcer location: midfoot Laterality: left Non-pressure ulcer stage: with fat layer exposed DKA (diabetic ketoacidoses) E11.10 Diabetes mellitus complication detail: without coma Diabetes mellitus type: type 2 Hypertension I15.9 Hypertension type: unspecified secondary hypertension DVT prophylaxis Z29.9
--- NOTE | 2020-07-20 16:03 | Coding Query ---
PRESSURE ULCER DOCUMENTATION To promote full compliance with coding requirements relating to patient care, physician participation is requested in all cases of assistant grocery uncertainty. Please assist us with the question(s) below: Please specify the known or suspected type by placing an "X" within the parenthesis (x). A diabetic ulcer of 5th metatarsal head of left foot If possible, please check the box that provides the specific stage of the diabetic ulcer (x ) limited to breakdown of skin ( ) with fat layer exposed ( ) with necrosis of muscle ( ) with necrosis of bone ( ) with muscle involvement without evidence of necrosis ( ) with bone involvement without evidence of necrosis ( ) with other specified severity ( ) with unspecified severity Thank you Lucy MENSAH
== END 2020-07-10 13:49 | disposition home or self-care (01) | DRG 638 ==
LOC: ED 03:20 → 2N 09:08